=== PATIENT | female | born 1955 | race Caucasian/White ===

== ENCOUNTER 2022-09-10 15:55 | Inpatient (IN) | payer OTHER, SELFPAY ==
[2022-09-10] VITALS (7 sets, daily range): BP systolic 128–157; BP diastolic 72–93; PULSE 61–72; RESP 16–22; TEMP 36.2–36.6; O2SAT 91–97; BMI 30.5; BMI 29.8
--- NOTE | 2022-09-10 16:24 | PC.NURSE ---
placed on 3 liters via nc as with activity patient dropped to 71-7% on room air so normally is on 3 liters of NC and climbed to 87% and continues to recover.
--- NOTE | 2022-09-10 16:27 | CRLHL7_ITS ---
For Patients: As a result of the Cures Act, medical imaging exams and procedure reports are released immediately into your electronic medical record. You may view this report before your referring provider. If you have questions, please contact your health care provider. INDICATION: Shortness of breath. TECHNIQUE: Chest 2 views. COMPARISON: Chest CT 12/07/2021. FINDINGS: Cardiovascular and mediastinum: Cardiomegaly. Tortuous and atherosclerotic thoracic aorta. Lungs and pleural spaces: Patchy left lower lobe airspace opacity with blunting of the left costophrenic angle. Questionable smaller opacity in the right lower lobe. No pneumothorax. Bones and soft tissues: Unchanged chronic anterior compression fracture at thoracolumbar junction. Right axillary surgical clips. IMPRESSION: Patchy left lower lobe, and possibly right lower lobe, airspace opacity compatible with pneumonia in the correct clinical setting. Probable small left pleural effusion. Dictated by Gerry Yang MD @ 09/10/2022 7:03:18 PM (Electronically Signed)
[2022-09-10 16:51] LABS: Lactate* 1.3 mmol/L (0.5-1.9)
[2022-09-10 16:52] LABS: Basophils Absolute Auto 0.03 K/uL (0.00-0.30); Basophils Percent Auto 0.5 % (0.0-3.0); Eosinophils Absolute Auto 0.03 K/uL (0.00-0.50); Eosinophils Percent Auto 0.5 % (0.0-7.0); Hemoglobin* 10.3 gm/dL (12.0-16.0); Immature Granulocytes Abs Auto 0.01 K/uL (0.00-0.30); Immature Granulocytes Pct Auto 0.2 %; Lymphocytes Percent Auto 16.5 % (20-44); Mean Corpuscular HGB Conc 31 gm/dL (32-36); Mean Corpuscular Hemoglobin 31 pg (26-34); Mean Corpuscular Volume 99 fL (80-100); Monocytes Percent Auto 13.1 % (0.0-11.0); Neutrophils Absolute Auto 3.86 K/uL (1.7-7.0); Neutrophils Percent Auto 69.2 % (42.0-72.0); Platelet Count* 166 K/uL (140-440); RDW Coefficient of Variation % 18.1 % (11.5-15.5); Red Blood Count 3.35 m/uL (4.00-5.20); White Blood Count* 5.58 K/uL (4.50-11.00)
--- NOTE | 2022-09-10 16:57 | ED.GENADULT ---
HPI - General Adult General Chief complaint: Shortness of Breath/Dyspnea Stated complaint: Short of Breath Retaining Water Time Seen by Provider: 09/10/22 16:16 Source: patient Mode of arrival: ambulatory Limitations: no limitations History of Present Illness HPI narrative: Patient is a 67-year-old female coming in today complaining shortness of breath. Patient states she has been getting more short of breath over the last several weeks. She denies any fevers or chills. Has a mild cough but that is nothing new. She does have a history of COPD and congestive heart failure. Has noticed that her legs have become more swollen over the last several weeks. She is usually on 3 L oxygen at home and that has remained stable. She stated that she tried to increase her oxygen levels but the machine went crazy on her. Appetite is unchanged, no diarrhea or urinary symptoms. No sick contacts that she is aware of. She does take Lasix 40 mg daily and that is unchanged. Has noticed a weight increase over the last couple of months. Related Data Home Medications Medication Instructions Recorded Confirmed acetaminophen 325 mg tablet 975 mg PO .q 8 hrs PRN 08/16/22 09/10/22 albuterol sulfate 90 mcg/actuation 2 puff inhalation Q4H PRN 08/16/22 09/10/22 aerosol inhaler amiodarone 200 mg tablet 200 mg PO QDAY 08/16/22 09/10/22 apixaban 5 mg tablet (Eliquis) 5 mg PO BID 08/16/22 09/10/22 atorvastatin 40 mg tablet 40 mg PO QDAY 08/16/22 09/10/22 binimetinib 15 mg tablet (Mektovi) 45 mg PO BID 08/16/22 09/10/22 calcium carbonate 600 mg-vitamin 1 cap PO DAILY 08/16/22 09/10/22 D3 12.5 mcg (500 unit) capsule (Calcium 600 with Vitamin D3) cholecalciferol (vitamin D3) 125 125 mcg PO QDAY 08/16/22 09/10/22 mcg (5,000 unit) capsule digoxin 125 mcg (0.125 mg) tablet 0.125 mg PO QDAY 08/16/22 09/10/22 encorafenib 75 mg capsule 450 mg PO QDAY 08/16/22 09/10/22 (Braftovi) fluoxetine 40 mg capsule 40 mg PO QDAY 08/16/22 09/10/22 furosemide 40 mg tablet 40 mg PO QDAY 08/16/22 09/10/22 gabapentin 100 mg capsule 100 mg PO .hs 08/16/22 09/10/22 isosorbide dinitrate 5 mg tablet 5 mg PO BID 08/16/22 09/10/22 magnesium hydroxide 400 mg/5 mL 30 ml PO QDAY PRN 08/16/22 09/10/22 oral suspension (Dulcolax (magnesium hydroxide)) omeprazole 20 mg capsule,delayed 20 mg PO QDAY 08/16/22 09/10/22 release umeclidinium 62.5 mcg-vilanterol 1 inh inhalation Q24H 08/16/22 09/10/22 25 mcg/actuation powdr for inhalation (Anoro Ellipta) Allergies Allergy/AdvReac Type Severity Reaction Status Date / Time codeine Allergy Severe blisters Verified 09/10/22 16:12 Review of Systems Status of ROS: Reports: 10 or more systems reviewed and unremarkable except as noted in History and below PFSH PFS Social History Smoking Status: Former smoker What tobacco products do you use: cigarettes Smoking packs per day: 1 Smoking cigarettes per day: 20.0 Years smoked: 50 Smoking pack-years: 50.00 Smoking quit date/years: >15 years ago Second hand tobacco smoke exposure: No How often do you have a drink containing alcohol: never How often do you have six or more drinks on one occasion: Never AUDIT-C Alcohol total score: 0 Non-prescribed substance use: denies use service: No Exam Narrative: Exam Narrative: Well-nourished well-developed patient , obviously tachypneic with pursed lip breathing. Alert and oriented. Answers questions appropriately. Mood and affect are appropriate. Thoughts are goal oriented and rational. No tangential or magical thinking noted. HEENT: Normocephalic atraumatic. Pupils are equally round reactive to light. Extraocular muscles are intact. Conjunctivae are moist without any icterus noted. Moist mucous membranes. Posterior pharynx is normal. Neck is soft without any lymphadenopathy or thyromegaly. No masses are appreciated. Cardiovascular: Heart is regular rate and rhythm S1 and S2 are present without any murmurs. Lungs: Decreased breath sounds bilaterally with the left more so than the right. There is no wheezing or rales heard. Abdomen: Soft and nontender nondistended with normal bowel sounds. No guarding or rebound. Extremities: Bilateral lower extremities have 2+ pitting edema almost to the knees. Skin: Well perfused without any obvious rashes. Const: Vital Signs, click to edit/add: Vital Signs - 24 hr 09/10/22 16:03 09/10/22 17:40 09/10/22 17:51 Temperature 97.4 F L 97.6 F Pulse Rate [Right Pulse Oximeter] 65 68 Respiratory Rate 22 18 Blood Pressure [Ri t Upper Arm] 137/76 149/83 H Pulse Oximetry 97 93 94 Oxygen Delivery Me thod Nasal Cannula Nasal Cannula Course Course Hospital Course: IV was established and labs were drawn. She has mild anemia, normal white blood cell count. Mild hyponatremia 134. BNP elevated over 6000. Chest x-ray concerning for pneumonia per radiologic read however this does not clinically fit the picture. Patient received IV Lasix 40 mg, urinated over 1000 mL in the following in 2 hours. Her oxygen saturation went from 89-90% on 3 L nasal cannula to 94-95%. Had a conversation with Shayy and her daughter regarding her living situation, Shayy currently lives in her daughter's basement in an independent apartment. Her daughter is quite concerned about her mobility and evidence of dementia. Patient has been forgetting to wear her oxygen, has not been ambulating very much and has not been eating well at home. Patient and daughter are unsure of when her last echocardiogram was. Vital Signs Vital signs: Initial Vital Signs Temperature 97.4 F L 09/10/22 16:03 Temperature Source Temporal Artery Scan 09/10/22 16:03 Pulse Rate 65 09/10/22 16:03 Respiratory Rate 22 09/10/22 16:03 Blood Pressure 137/76 09/10/22 16:03 Blood Pressure Mean 96 09/10/22 16:03 Blood Pressure Position Sitting 09/10/22 16:03 Pulse Oximetry 97 09/10/22 16:03 Oxygen Delivery Method 09/10/22 16:03 Vital Signs Temperature 97.4 F L 09/10/22 16:03 Pulse Rate 65 09/10/22 16:03 Respiratory Rate 22 09/10/22 16:03 Blood Pressure 137/76 09/10/22 16:03 Pulse Oximetry 97 09/10/22 16:03 Oxygen Delivery Method 09/10/22 16:03 Temperature 97.6 F 09/10/22 17:51 Pulse Rate 68 09/10/22 17:51 Respiratory Rate 18 09/10/22 17:51 Blood Pressure 149/83 H 09/10/22 17:51 Pulse Oximetry 94 09/10/22 17:51 Oxygen Delivery Method 09/10/22 17:51 Medical Decision Making MDM Narrative Medical decision making narrative: 67-year-old female congestive heart failure and question failure to thrive at home. Patient will be admitted for further management. Lab Data Lab results reviewed: Yes I reviewed the patient's lab results Labs: Lab Results 09/10/22 09/10/22 09/10/22 Range/Units 16:27 16:27 16:45 WBC 5.58 (4.50-11.00) K/uL RBC 3.35 L (4.00-5.20) m/uL Hgb 10.3 L (12.0-16.0) gm/dL Hct 33.0 (33.0-51.0) % MCV 99 (80-100) fL MCH 31 (26-34) pg MCHC 31 L (32-36) gm/dL RDW Coeff of Bruno 18.1 H (11.5-15.5) % Plt Count 166 (140-440) K/uL Neut % (Auto) 69.2 (42.0-72.0) % Lymph % (Auto) 16.5 L (20-44) % Amador % (Auto) 13.1 H (0.0-11.0) % Eos % (Auto) 0.5 (0.0-7.0) % Baso % (Auto) 0.5 (0.0-3.0) % Neut # (Auto) 3.86 (1.7-7.0) K/uL Lymph # (Auto) 0.90 (0.90-2.90) K/uL Amador # (Auto) 0.70 (0.00-0.90) K/UL Eos # (Auto) 0.03 (0.00-0.50) K/uL Baso # (Auto) 0.03 (0.00-0.30) K/uL Sodium (135-149) mmol/L Potassium (3.6-5.1) mmol/L Chloride (96-114) mmol/L Carbon Dioxide (20-32) mmol/L BUN (7-30) mg/dL Creatinine (0.5-1.5) mg/dL Estimated Creat Clear Estimated GFR ml/min Glucose (60-115) mg/dL Lactate (0.5-1.9) mmol/L Calcium (8.4-10.6) mg/dL C-Reactive Protein (0.5-1.0) mg/dL NT-Pro-B Natriuret Pep pg/mL SARS-CoV-2 (PCR) Negative SARS-CoV-2 (Negative) Influenza Type A (PCR) Negative PCR FLU A (Negative) Influenza Type B (PCR) Negative PCR FLU B (Negative) RSV (PCR) Negative PCR RSV (Negative) POC Troponin I 0.02 (0.01-0.04) ng/ml 09/10/22 09/10/22 Range/Units 16:45 16:45 WBC (4.50-11.00) K/uL RBC (4.00-5.20) m/uL Hgb (12.0-16.0) gm/dL Hct (33.0-51.0) % MCV (80-100) fL MCH (26-34) pg MCHC (32-36) gm/dL RDW Coeff of Bruno (11.5-15.5) % Plt Count (140-440) K/uL Neut % (Auto) (42.0-72.0) % Lymph % (Auto) (20-44) % Amador % (Auto) (0.0-11.0) % Eos % (Auto) (0.0-7.0) % Baso % (Auto) (0.0-3.0) % Neut # (Auto) (1.7-7.0) K/uL Lymph # (Auto) (0.90-2.90) K/uL Amador # (Auto) (0.00-0.90) K/UL Eos # (Auto) (0.00-0.50) K/uL Baso # (Auto) (0.00-0.30) K/uL Sodium 139 (135-149) mmol/L Potassium 3.4 L (3.6-5.1) mmol/L Chloride 103 (96-114) mmol/L Carbon Dioxide 29 (20-32) mmol/L BUN 17 (7-30) mg/dL Creatinine 0.8 (0.5-1.5) mg/dL Estimated Creat Clear 49.70 Estimated GFR 80 ml/min Glucose 96 (60-115) mg/dL Lactate 1.3 (0.5-1.9) mmol/L Calcium 10.3 (8.4-10.6) mg/dL C-Reactive Protein 0.8 (0.5-1.0) mg/dL NT-Pro-B Natriuret Pep 6930 pg/mL SARS-CoV-2 (PCR) (Negative) Influenza Type A (PCR) (Negative) Influenza Type B (PCR) (Negative) RSV (PCR) (Negative) POC Troponin I (0.01-0.04) ng/ml Imaging Data Chest x-ray: Attestation: I have reviewed the pertinent imaging results. Radiologist's impression: Chest 2 views. COMPARISON: Chest CT 12/07/2021. FINDINGS: Cardiovascular and mediastinum: Cardiomegaly. Tortuous and atherosclerotic thoracic aorta. Lungs and pleural spaces: Patchy left lower lobe airspace opacity with blunting of the left costophrenic angle. Questionable smaller opacity in the right lower lobe. No pneumothorax. Bones and soft tissues: Unchanged chronic anterior compression fracture at thoracolumbar junction. Right axillary surgical clips. IMPRESSION: Patchy left lower lobe, and possibly right lower lobe, airspace opacity compatible with pneumonia in the correct clinical setting. Probable small left pleural effusion. ECG Data Attestation: I personally reviewed and interpreted this ECG as follows: (Normal sinus rhythm, first-degree AV block, incomplete right bundle-branch block, pulse 64) Discharge Plan Discharge Clinical Impression: Congestive heart failure Prescriptions: No Action isosorbide dinitrate 5 mg tablet 5 mg PO BID amiodarone 200 mg tablet 200 mg PO QDAY Eliquis 5 mg tablet 5 mg PO BID gabapentin 100 mg capsule 100 mg PO .hs atorvastatin 40 mg tablet 40 mg PO QDAY Label Comments: TAKE 1 TABLET BY MOUTH AT BEDTIME fluoxetine 40 mg capsule 40 mg PO QDAY Rx Instructions: takes along with 20mg daily furosemide 40 mg tablet 40 mg PO QDAY Rx Instructions: takes along with 20mg daily digoxin 125 mcg (0.125 mg) tablet 0.125 mg PO QDAY omeprazole 20 mg capsule,delayed release(DR/EC) 20 mg PO QDAY Anoro Ellipta 62.5-25 mcg/actuation blister with device 1 inh inhalation Q24H Label Comments: INHALE 1 PUFF BY MOUTH EVERY DAY Mektovi 15 mg tablet 45 mg PO BID Braftovi 75 mg capsule 450 mg PO QDAY calcium carbonate-vitamin D3 [Calcium 600 with Vitamin D3] 600 mg-12.5 mcg (500 unit) capsule 1 cap PO DAILY magnesium hydroxide [Dulcolax (magnesium hydroxide)] 400 mg/5 mL suspension 30 ml PO QDAY PRN cholecalciferol (vitamin D3) 125 mcg (5,000 unit) capsule 125 mcg PO QDAY albuterol sulfate 90 mcg/actuation HFA aerosol inhaler 2 puff inhalation Q4H PRN acetaminophen 325 mg tablet 975 mg PO .q 8 hrs PRN Follow Up/Referrals: Carlitos De Leon, PATurnerC [Primary Care Provider] -
[2022-09-10] MEDS: FUROSEMIDE 10 MG/ML inj 40 MG IVP (17:07)
[2022-09-10 17:09] LABS: Chloride* 103 mmol/L (96-114); Potassium* 3.4 mmol/L (3.6-5.1); Sodium* 139 mmol/L (135-149)
[2022-09-10 17:12] LABS: Blood Urea Nitrogen* 17 mg/dL (7-30); Carbon Dioxide* 29 mmol/L (20-32); Creatinine* 0.8 mg/dL (0.5-1.5); Estimated Glomerular Filt Rate 80 ml/min
[2022-09-10 17:13] LABS: Calcium* 10.3 mg/dL (8.4-10.6); Glucose* 96 mg/dL (60-115)
[2022-09-10 17:15] LABS: C Reactive Protein* 0.8 mg/dL (0.5-1.0)
[2022-09-10 17:18] LABS: Slide Review Reflex No
[2022-09-10 17:20] LABS: NT Pro B Type NatriureticPept* 6930 pg/mL
[2022-09-10 17:31] LABS: Troponin, Point-of-Care* 0.02 ng/ml (0.01-0.04)
[2022-09-10 17:49] LABS: PCR FLU A Negative PCR FLU A (Negative); PCR FLU B Negative PCR FLU B (Negative); PCR RSV Negative PCR RSV (Negative)
[2022-09-10 18:03] LABS: SARS PCR* Negative SARS-CoV-2 (Negative)
[2022-09-10 19:24] LABS: Troponin, Point-of-Care* 0.02 ng/ml (0.01-0.04)
--- NOTE | 2022-09-10 21:36 | P.IMHP_ITS ---
Hospitalist- H&P: HPI History of Present Illness Date Seen: 09/10/22 Chief complaint: Short of Breath Retaining Water Narrative: Shayy Cheng is a 67 year old female with past medical history of CAD s/p stent, malignant melanoma, paroxysmal atrial fibrillation on Eliquis, hypertension, KARL on CPAP, COPD (on 3 liters baseline), depression/anxiety, and breast cancer s/p bilateral mastectomy presenting for evalaution of SOB. The patient lives with her daughter in law. She endorses increased lower extremity edema; progressive cough and exertional dyspnea. She denies wheezing, fever, chest pain, palpitations. In the ED CXR showed Patchy left lower lobe, and possibly right lower lobe, airspace opacity compatible with pneumonia in the correct clinical setting. Probable small left pleural effusion. In the ED troponin WNL, procal WNL, WBC WNL, potassium 3.4, BNP 6930. She was given 40 mg IV lasix and admitted for further evaluation. Patient states SOB has improved since arrival in ED. She is on 3 liters oxygen (her normal baseline) cxr Patchy left lower lobe, and possibly right lower lobe, airspace opacity compatible with pneumonia in the correct clinical setting. Probable small left pleural effusion. Medical Hx 12/04/2018 Encounter for antineoplastic immunotherapy 09/13/2018 Malignant melanoma (HC) 2019 Brain tumor (HC) 2019 C. difficile colitis 05/12/2000 Breast cancer (HC) Date Unknown Anxiety Date Unknown Aortic aneurysm, abdominal Date Unknown Bronchitis Date Unknown CAD (coronary artery disease) Date Unknown COPD (chronic obstructive pulmonary disease) (HC) Date Unknown Depression Date Unknown Emphysema, unspecified (HC) Date Unknown H/O ETOH abuse Date Unknown Heart attack (HC) Date Unknown Hypertension Date Unknown Insomnia Date Unknown Low potassium syndrome Date Unknown Lymphedema of left leg Date Unknown Osteoarthritis Date Unknown Osteoporosis Date Unknown Scoliosis Date Unknown Sleep apnea Surgical History? 8 items 08/22/2017 Coronary stent placement Date Unknown (ia) pr remove groin lymph nodes superf Date Unknown Back surgery Date Unknown Hysterectomy Date Unknown Mandible surgery Date Unknown Mastectomy Date Unknown Portacath Date Unknown Pr unlisted procedure breast (Right) Tobacco History? 6 items Smoking Status Former Quit 04/21/2020 Types Cigarettes quit in 04/21/2020 Amount 0.25 packs/day Smokeless Tobacco Status Never Comment 5 cigs per day Vaping/E-Liquid Use Questions Responses Vaping/E-Liquid Use Never User Vaping/E-Liquid Substances Questions Responses Nicotine No CBD No Flavored No THC No Other No Review of Systems Status of ROS: Reports: 10 or more systems reviewed and unremarkable except as noted in History and below [facility] Social History Smoking Status: Former smoker What tobacco products do you use: cigarettes Smoking packs per day: 1 Smoking cigarettes per day: 20.0 Years smoked: 50 Smoking pack-years: 50.00 Smoking quit date/years: >15 years ago Second hand tobacco smoke exposure: No How often do you have a drink containing alcohol: never How often do you have six or more drinks on one occasion: Never AUDIT-C Alcohol total score: 0 Non-prescribed substance use: denies use service: No Meds Home Medications and Allergies Home Medications Medication Instructions Recorded Confirmed Type acetaminophen 325 mg tablet 975 mg PO .q 8 hrs PRN 08/16/22 09/10/22 History albuterol sulfate 90 mcg/actuation 2 puff inhalation Q4H PRN 08/16/22 09/10/22 History aerosol inhaler amiodarone 200 mg tablet 200 mg PO QDAY 08/16/22 09/10/22 History apixaban 5 mg tablet (Eliquis) 5 mg PO BID 08/16/22 09/10/22 History atorvastatin 40 mg tablet 40 mg PO QDAY 08/16/22 09/10/22 History binimetinib 15 mg tablet (Mektovi) 45 mg PO BID 08/16/22 09/10/22 History calcium carbonate 600 mg-vitamin 1 cap PO DAILY 08/16/22 09/10/22 History D3 12.5 mcg (500 unit) capsule (Calcium 600 with Vitamin D3) cholecalciferol (vitamin D3) 125 125 mcg PO QDAY 08/16/22 09/10/22 History mcg (5,000 unit) capsule digoxin 125 mcg (0.125 mg) tablet 0.125 mg PO QDAY 08/16/22 09/10/22 History encorafenib 75 mg capsule 450 mg PO QDAY 08/16/22 09/10/22 History (Braftovi) fluoxetine 40 mg capsule 40 mg PO QDAY 08/16/22 09/10/22 History furosemide 40 mg tablet 40 mg PO QDAY 08/16/22 09/10/22 History gabapentin 100 mg capsule 100 mg PO .hs 08/16/22 09/10/22 History isosorbide dinitrate 5 mg tablet 5 mg PO BID 08/16/22 09/10/22 History magnesium hydroxide 400 mg/5 mL 30 ml PO QDAY PRN 08/16/22 09/10/22 History oral suspension (Dulcolax (magnesium hydroxide)) omeprazole 20 mg capsule,delayed 20 mg PO QDAY 08/16/22 09/10/22 History release umeclidinium 62.5 mcg-vilanterol 1 inh inhalation Q24H 08/16/22 09/10/22 History 25 mcg/actuation powdr for inhalation (Anoro Ellipta) Allergies Allergy/AdvReac Type Severity Reaction Status Date / Time codeine Allergy Severe blisters Verified 09/10/22 16:12 Exam Narrative: Exam Narrative: Gen: no acute distress HEENT: NCAT EOMI mmm Neck: Supple CV: RRR normal s1 s2 Lungs: bibasilar crackles Abd: Soft,nt, nd Neuro: Alert, oriented, CN grossly intact; nonfocal screening?exam Psych: appropriate affect MSK: age appropriate muscle mass Skin; Warm, dry no rash on face Ext: 1-2+ bilateral lower extremity edema Const: Vital Signs, click to edit/add: Vital Signs - 24 hr 09/10/22 16:03 09/10/22 17:40 09/10/22 17:51 Temperature 97.4 F L 97.6 F Pulse Rate [Right Pulse Oximeter] 65 68 Respiratory Rate 22 18 Blood Pressure [Ri ght Upper Arm] 137/76 149/83 H Pulse Oximetry 97 93 94 Oxygen Delivery Me thod Nasal Cannula Nasal Cannula Oxygen Flow Rate 09/10/22 19:49 Temperature Pulse Rate [Right Pulse Oximeter] 66 Respiratory Rate 20 Blood Pressure [Ri ght Upper Arm] 132/80 Pulse Oximetry 94 Oxygen Delivery Me thod Nasal Cannula Oxygen Flow Rate 3 Hospitalist - H&P: Result Labs Labs: Short CBC 09/10/22 Range/Units 16:45 WBC 5.58 (4.50-11.00) K/uL Hgb 10.3 L (12.0-16.0) gm/dL Hct 33.0 (33.0-51.0) % Plt Count 166 (140-440) K/uL [facility] 09/10/22 16:45 Sodium 139 Potassium 3.4 L Chloride 103 Carbon Dioxide 29 BUN 17 Creatinine 0.8 Glucose 96 Calcium 10.3 ECG Interpretation: Final Conclusion Previous Study: 08/03/2021 1. Normal left ventricular chamber size.Normal left ventricular wall thickness. Estimated left ventricular ejection fraction is 60-65%.No regional wall motion abnormalities.Abnormal ventricular septal motion. Ventricular septal flattening in systole and diastole consistent with right ventricular pressure and volume overload. 2. Severe right ventricular chamber enlargement. Moderately decreased right ventricular systolic function. Severe pulmonary hypertension. Estimated right ventricular systolic pressure is 63 mmHg 3.Aortic valve sclerosis.No aortic valve stenosis.No aortic valve regurgitation. 4.Mild tricuspid valve regurgitation. 5.Dilated inferior vena cava with decreased inspiratory collapse. ? Compared to prior study of 08/03/2021, the following changes have occurred: RV is enlarged and moderately severely hypokinetic. There is severe pulmonary hypertension with RVSP increased from 40 Mmhg to 63 MMhg plus 15 MMhg RAP Ventricular septal flattening in systole and diastole consistent with right ventricular pressure and volume overload is now present. ? . Patient short of breath /she was imaged sitting upright and on O2. ? Estimated EF: 60-65% Assessment and Plan Assessment and plan (1) Congestive heart failure: Status: Acute Plan Shayy Cheng is a 67 year old female with past medical history of CAD s/p stent, malignant melanoma, paroxysmal atrial fibrillation on Eliquis, hypertension, KARL on CPAP, COPD (on 3 liters baseline), depression/anxiety, and breast cancer s/p bilateral mastectomy presenting for evalaution of SOB, increased lower extremity edema; progressive cough and exertional dyspnea. In the ED CXR showed Patchy left lower lobe, and possibly right lower lobe, airspace opacity compatible with pneumonia in the correct clinical setting. Probable small left pleural effusion. In the ED troponin WNL, procal WNL, WBC WNL, potassium 3.4, BNP 6930. She was given 40 mg IV lasix and admitted for further evaluation. Patient states SOB has improved since arrival in ED. She is on 3 liters oxygen (her normal baseline) 1. Acute on chronic diastolic CHF exacerbation 2. Chronic Hypoxic Respiratory Failure secondary to COPD on 3 liters supplemental oxygen 3. Hx of CAD s/p stent angiogram in 09/2020: LM normal, LAD with mod dz-diffuse and dense calcification but patent and without focal stenoses, Cx also with mod dz and diffuse calcifications but prior stent is widely patent 4. Hx of PAF on eliquis 5. Hx of HTN 6. Hx of KARL 7. Hx of Depression and anxiety 8. Hx of breast cancer s/p bilateral mastectomy 9. Hx of Malignant melanoma 10. Anemia of chronic disease 11. Hypokalemia 12. Rule out RLL PNA althought procal WNL 13. Generalized Weakness; multifactorial 14. LLE lymphedema Plan -admit to inpatient -tele -echo -daily weight -continue IV lasix -electrolyte replacement as needed -ceftriaxone and doxycyline but given normal procal low threshold for de- escalating vs dc antibiotics -PT, OT evaluation Code-DNR DVT ppx-on eliquis
[2022-09-10] MEDS: ACETAMINOPHEN 325 MG TABLET 650 MG PO (22:00)
[2022-09-10] MEDS: ATORVASTATIN CALCIUM 40 MG TABLET PO (22:01)
[2022-09-10] MEDS: GABAPENTIN 100 MG CAPSULE PO (22:02)
[2022-09-10] MEDS: APIXABAN 5 MG TABLET PO (22:02)
[2022-09-10] MEDS: ISOSORBIDE DINITRATE 10 MG TABLET 5 MG PO (22:04)
[2022-09-10] MEDS: SODIUM CHLORIDE 0.9 % (FLUSH) 10 ML SYRINGE 5 ML IVF (22:04)
[2022-09-10 22:48] LABS: Procalcitonin* 0.04 ng/mL (<0.50)
[2022-09-10 23:21] LABS: Magnesium* 1.8 mg/dL (1.5-2.6)
[2022-09-11] VITALS (14 sets, daily range): BP systolic 112–135; BP diastolic 58–76; PULSE 52–66; RESP 18–22; TEMP 36.2–36.8; O2SAT 88–94
[2022-09-11] MEDS: cefTRIAXone 1 GM in 0.9 % SODIUM CHLORIDE Mini-bag 100 ML IVPB (00:36)
[2022-09-11] MEDS: DOXYCYCLINE HYCLATE 100 MG CAPSULE PO ×3 (00:36→21:14)
[2022-09-11] MEDS: POTASSIUM CHLORIDE 10 MEQ CAPSULE ER 40 MEQ PO (00:37)
[2022-09-11] MEDS: MAGNESIUM OXIDE 400 MG TABLET PO ×3 (00:37→21:15)
--- NOTE | 2022-09-11 05:17 | PC.NURSE ---
Patient to unit at 2014. A&Ox3. Pleasant and cooperative. Rates chronic L. hip pain 02/28. PRN Tylenol for relief. A1/walker/GB. SOB with exertion. Chronic 3Lt O2 use. Afebrile. [id number] Pamela at bedside and supportive.
[2022-09-11 07:28] LABS: Chloride* 106 mmol/L (96-114); Potassium* 4.1 mmol/L (3.6-5.1); Sodium* 141 mmol/L (135-149)
[2022-09-11 07:29] LABS: Iron* 33 ug/dL (37-170)
[2022-09-11 07:31] LABS: Carbon Dioxide* 31 mmol/L (20-32); Creatinine* 0.8 mg/dL (0.5-1.5); Estimated Glomerular Filt Rate 80 ml/min
[2022-09-11 07:32] LABS: Blood Urea Nitrogen* 15 mg/dL (7-30); Calcium* 9.9 mg/dL (8.4-10.6); Glucose* 88 mg/dL (60-115); Magnesium* 1.9 mg/dL (1.5-2.6)
[2022-09-11 07:38] LABS: Percent Iron Saturation 8 % (20-50); Total Iron Binding Capacity 397 ug/dL (265-497)
[2022-09-11 07:45] LABS: White Blood Count* 4.87 K/uL (4.50-11.00)
[2022-09-11 07:46] LABS: Basophils Percent Auto 0.4 % (0.0-3.0); Eosinophils Percent Auto 1.8 % (0.0-7.0); Hematocrit 31.8 % (33.0-51.0); Hemoglobin* 9.8 gm/dL (12.0-16.0); Immature Granulocytes Pct Auto 0.2 %; Lymphocytes Percent Auto 27.1 % (20-44); Mean Corpuscular HGB Conc 31 gm/dL (32-36); Mean Corpuscular Hemoglobin 30 pg (26-34); Mean Corpuscular Volume 99 fL (80-100); Monocytes Percent Auto 14.4 % (0.0-11.0); Neutrophils Percent Auto 56.1 % (42.0-72.0); Platelet Count* 174 K/uL (140-440); RDW Coefficient of Variation % 18.2 % (11.5-15.5); Red Blood Count 3.22 m/uL (4.00-5.20)
[2022-09-11 07:47] LABS: Slide Review Reflex No
[2022-09-11] MEDS: AMIODARONE 200 MG TABLET PO (09:34)
[2022-09-11] MEDS: APIXABAN 5 MG TABLET PO ×2 (09:34→21:15)
[2022-09-11] MEDS: FUROSEMIDE 40 MG TABLET PO ×2 (09:34→14:54)
[2022-09-11] MEDS: SODIUM CHLORIDE 0.9 % (FLUSH) 10 ML SYRINGE 5 ML IVF ×2 (09:35→21:13)
[2022-09-11 09:36] LABS: Digoxin* 1.1 ng/mL (0.8-2.0)
[2022-09-11] MEDS: ISOSORBIDE DINITRATE 10 MG TABLET 5 MG PO ×2 (09:50→21:12)
--- NOTE | 2022-09-11 14:36 | PC.NURSE ---
Eval by Dr. Miko Butler, PT and OT. No dysphagia with meds or c/o pain. Tele indicates sinus bradycardia with a first degree HB. Digoxin dose held d/to pulse of [address] Butler aware. Saline lock patent. Son Doug visiting this afternoon and he brought in home chemo meds and Anoro inhaler, pharmacist Rebecca notified and she will verify meds/print labels. Sats maintained on 3L/NC which is patient's flow rate of oxygen at home for her CHF.
--- NOTE | 2022-09-11 16:38 | PC.NURSE ---
Pt received 40 mg of Lasix and has voided once since it was given. Assisted with dinner order. VS stable, sats 91% on 3L/NC. Tele indicates NSR with first degree heart block. Plan potassium with evening meal 10 mEq PO. Report will be given to oncoming noc shift per protocol.
[2022-09-11] MEDS: POTASSIUM CHLORIDE 10 MEQ CAPSULE ER PO (17:09)
--- NOTE | 2022-09-11 18:15 | P.IMPN_ITS ---
Progress Note: A&P Assessment and plan (1) Congestive heart failure: Problem details: Clinically improved with diuresis. Transition from IV to oral furosemide. Echocardiogram from July 2023: 1. Normal left ventricular chamber size. Normal left ventricular wall thickness. Estimated left ventricular ejection fraction is 60-65%.No regional wall motion abnormalities.Abnormal ventricular septal motion. Ventricular septal flattening in systole and diastole consistent with right ventricular pressure and volume overload. 2. Severe right ventricular chamber enlargement. Moderately decreased right ventricular systolic function. Severe pulmonary hypertension. Estimated right ventricular systolic pressure is 63 mmHg 3.Aortic valve sclerosis.No aortic valve stenosis.No aortic valve regurgitation. 4.Mild tricuspid valve regurgitation. 5.Dilated inferior vena cava with decreased inspiratory collapse. Status: Acute (2) COPD (chronic obstructive pulmonary disease): Problem details: Chronic oxygen dependence, 3 L per nasal cannula Status: Acute (3) Lymphedema of left lower extremity: Status: Acute (4) Chronic anemia: Problem details: Uncertain etiology. Currently has iron deficiency but elevated MCV. Likely multifactorial Status: Acute (5) Paroxysmal atrial fibrillation: Problem details: Currently in sinus rhythm. Heart rate relatively slow. Stop digoxin. If necessary give beta-frankie for rate control. Continue anticoagulation. Status: Acute Plan Continue in-hospital for monitoring and treatment of heart failure, heart rate and rhythm, hypoxia. Time Spent With Patient Total time spent: Total time spent today is 50 minutes, 30 minutes in coordination of care and discussing with patient and other providers management of multiple chronic medical problems listed above Subjective Date Seen: 09/11/22 Interval history: 67-year-old female seen in followup of hospital admission for acute on chronic hypoxic respiratory failure with acute on chronic dyspnea. Time admission this was felt to be due to heart failure exacerbation. Patient been treated with diuretic therapy and has had significant clinical improvement overnight. She remains on 3 L per nasal cannula supplemental oxygen which is her baseline treatment at home for her COPD. Chest x-ray raised the possibility of a basilar infiltrate posteriorly but she has not had any clinical signs or symptoms of respiratory illness beyond dyspnea. Exam Narrative: Exam Narrative: She is alert and appears in no distress. She gives her own history. Respirations with occasional crackle. No consolidation. Decreased breath sounds in all lung taylor. No marked wheezing. Cardiovascular: S1, S2, 1/6 systolic ejection murmur. No gallop or rub. Abdomen is soft without tenderness or mass. 1+ edema in her right ankle and 2+ in her left ankle. Const: Vital Signs, click to edit/add: Vital Signs - 24 hr 09/10/22 19:49 09/10/22 23:00 09/10/22 23:00 Temperature Pulse Rate Pulse Rate [Left P ulse Oximeter] Pulse Rate [Right Pulse Oximeter] 66 Respiratory Rate 20 18 Blood Pressure [Le ft Arm] Blood Pressure [Ri ght Upper Arm] 132/80 Pulse Oximetry 94 94 94 Oxygen Delivery Me thod Nasal Cannula Nasal Cannula Oxygen Flow Rate 3 3.0 09/10/22 23:00 09/10/22 20:20 09/10/22 22:30 Temperature 97.8 F 97.1 F L Pulse Rate 61 Pulse Rate [Left P ulse Oximeter] 72 69 Pulse Rate [Right Pulse Oximeter] Respiratory Rate 22 16 Blood Pressure [Le ft Arm] 157/93 H 128/72 Blood Pressure [Ri ght Upper Arm] Pulse Oximetry 94 91 Oxygen Delivery Me thod Nasal Cannula Nasal Cannula Oxygen Flow Rate 3.0 3.0 09/11/22 00:09 09/11/22 04:00 09/11/22 07:00 Temperature Pulse Rate 57 L Pulse Rate [Left P ulse Oximeter] 57 L Pulse Rate [Right Pulse Oximeter] Respiratory Rate 22 18 Blood Pressure [Le ft Arm] Blood Pressure [Ri ght Upper Arm] Pulse Oximetry 94 92 Oxygen Delivery Me thod Nasal Cannula Nasal Cannula Oxygen Flow Rate 3.0 3.0 09/11/22 07:45 09/11/22 07:45 09/11/22 07:45 Temperature 98.3 F Pulse Rate Pulse Rate [Left P ulse Oximeter] 57 L Pulse Rate [Right Pulse Oximeter] Respiratory Rate 20 20 Blood Pressure [Le ft Arm] 114/76 Blood Pressure [Ri ght Upper Arm] Pulse Oximetry 93 93 93 Oxygen Delivery Me thod Nasal Cannula Nasal Cannula Oxygen Flow Rate 3 3 09/11/22 08:00 09/11/22 11:00 09/11/22 15:15 Temperature 97.2 F L Pulse Rate 57 L Pulse Rate [Left P ulse Oximeter] 59 L Pulse Rate [Right Pulse Oximeter] Respiratory Rate 20 Blood Pressure [Le ft Arm] 112/64 Blood Pressure [Ri ght Upper Arm] Pulse Oximetry 91 91 Oxygen Delivery Me thod Nasal Cannula Oxygen Flow Rate 3 01/21/23 15:15 09/11/22 15:15 09/11/22 15:13 Temperature 97.4 F L Pulse Rate 61 Pulse Rate [Left P ulse Oximeter] 63 Pulse Rate [Right Pulse Oximeter] Respiratory Rate 20 20 Blood Pressure [Le ft Arm] 135/74 Blood Pressure [Ri ght Upper Arm] Pulse Oximetry 91 91 Oxygen Delivery Me thod Nasal Cannula Room Air Oxygen Flow Rate 3 3 Documenting provider has reviewed patient's vital signs: yes Labs Labs: Laboratory Results - last 24 hr 09/10/22 09/10/22 09/11/22 16:45 18:43 06:08 WBC 4.87 RBC 3.22 L Hgb 9.8 L Hct 31.8 L MCV 99 MCH 30 MCHC 31 L RDW Coeff of Bruno 18.2 H Plt Count 174 Neut % (Auto) 56.1 Lymph % (Auto) 27.1 Wilkinson % (Auto) 14.4 H Eos % (Auto) 1.8 Baso % (Auto) 0.4 Neut # (Auto) 2.70 Lymph # (Auto) 1.30 Wilkinson # (Auto) 0.70 Eos # (Auto) 0.10 Baso # (Auto) 0.00 Sodium Potassium Chloride Carbon Dioxide BUN Creatinine Estimated Creat Clear Estimated GFR Glucose Calcium Magnesium 1.8 Iron TIBC % Saturation Procalcitonin 0.04 Digoxin POC Troponin I 0.02 09/11/22 09/11/22 09/11/22 06:08 06:08 06:08 WBC RBC Hgb Hct MCV MCH MCHC RDW Coeff of Bruno Plt Count Neut % (Auto) Lymph % (Auto) Wilkinson % (Auto) Eos % (Auto) Baso % (Auto) Neut # (Auto) Lymph # (Auto) Wilkinson # (Auto) Eos # (Auto) Baso # (Auto) Sodium 141 Potassium 4.1 Chloride 106 Carbon Dioxide 31 BUN 15 Creatinine 0.8 Estimated Creat Clear 49.70 Estimated GFR 80 Glucose 88 Calcium 9.9 Magnesium 1.9 Iron 33 L TIBC 397 % Saturation 8 L Procalcitonin Digoxin 1.1 POC Troponin I
[2022-09-11] MEDS: OMEPRAZOLE 20 MG CAPSULE DR PO (19:42)
[2022-09-11] MEDS: Umeclidinium-Vilanterol [Anoro Ellipta] 62.5-25 mcg/actuation IH (19:42)
[2022-09-11] MEDS: ATORVASTATIN CALCIUM 40 MG TABLET PO (19:42)
[2022-09-11] MEDS: GABAPENTIN 100 MG CAPSULE PO (21:14)
[2022-09-11] MEDS: FLUOXETINE HCL 20 MG CAPSULE 40 MG PO (21:14)
[2022-09-12 01:49] VITALS: BP 118/69; PULSE 67; RESP 20; TEMP 36.6; O2SAT 89
--- NOTE | 2022-09-12 05:43 | PC.NURSE ---
[id number]: Patient pleasant and cooperative. A&Ox3. Denies pain. A1/4ww/GB. SOB w/movement. O2 sats >88% on chronic 3 Lt NC. Eating and voiding.
[2022-09-12 07:00] VITALS: PULSE 64; O2SAT 91
[2022-09-12 08:40] LABS: Albumin* 3.6 g/dL (3.3-5.0); Chloride* 107 mmol/L (96-114)
[2022-09-12 08:41] LABS: Potassium* 3.8 mmol/L (3.6-5.1); Sodium* 140 mmol/L (135-149)
[2022-09-12 08:43] LABS: Bilirubin Total* 0.8 mg/dL (0.1-1.5); Carbon Dioxide* 29 mmol/L (20-32); Creatinine* 0.8 mg/dL (0.5-1.5); Estimated Glomerular Filt Rate 80 ml/min; Total Protein* 6.7 g/dL (6.0-8.3)
[2022-09-12 08:44] LABS: Alanine Aminotransferase* 32 U/L (4-35); Alkaline Phosphatase* 68 U/L (40-150); Aspartate Amino Transferase* 31 U/L (12-35); Blood Urea Nitrogen* 13 mg/dL (7-30); Calcium* 9.7 mg/dL (8.4-10.6); Glucose* 91 mg/dL (60-115)
--- NOTE | 2022-09-12 09:01 | PM.DS1 ---
DS: Providers Provider Date Seen: 09/12/22 Date of admission: 09/10/22 19:53 Primary care physician: Carlitos De Leon PA-C Admitting Clinician: Singh Good MD Attending Physician on discharge: Singh Good MD Date of Discharge: 09/12/22 DS: Diagnosis Discharge Diagnosis (1) Congestive heart failure: Status: Acute Problem details: Clinically improved with diuresis. Transition from IV to oral furosemide. Echocardiogram from July 2023: 1. Normal left ventricular chamber size. Normal left ventricular wall thickness. Estimated left ventricular ejection fraction is 60-65%.No regional wall motion abnormalities.Abnormal ventricular septal motion. Ventricular septal flattening in systole and diastole consistent with right ventricular pressure and volume overload. 2. Severe right ventricular chamber enlargement. Moderately decreased right ventricular systolic function. Severe pulmonary hypertension. Estimated right ventricular systolic pressure is 63 mmHg 3.Aortic valve sclerosis.No aortic valve stenosis.No aortic valve regurgitation. 4.Mild tricuspid valve regurgitation. 5.Dilated inferior vena cava with decreased inspiratory collapse. (2) COPD (chronic obstructive pulmonary disease): Status: Acute Problem details: Chronic oxygen dependence, 3 L per nasal cannula (3) Lymphedema of left lower extremity: Status: Acute Problem details: Improved with diuresis. Continue long-term compression stockings (4) Chronic anemia: Status: Acute Problem details: Uncertain etiology. Currently has iron deficiency but elevated MCV. Likely multifactorial. Outpatient evaluation. (5) Paroxysmal atrial fibrillation: Status: Acute Problem details: Currently in sinus rhythm. Heart rate relatively slow. Stop digoxin. If necessary give beta-frankie for rate control. Continue anticoagulation. DS: Summary Hospital Course Hospital Course: 67-year-old female admitted to the hospital with increasing edema and dyspnea. Patient has COPD requiring 3 L of oxygen per nasal cannula chronically. Prior to admission she developed worsening dyspnea and increased swelling in her lower extremities. Time of admission this was felt to be due to heart failure exacerbation. Chest x-ray showed question of a basilar infiltrate but clinically there was no other evidence of an infectious process. On this basis she was treated for heart failure with increasing dose of diuretic. With that she had resolution of her dyspnea and improvement in her edema. She tolerated this well. She was incidentally noted to have an iron deficiency anemia with an elevated MCV. This was stable but the cause for this was not evaluated. Recommend outpatient evaluation for this. She had borderline bradycardia during her hospital stay she was in a sinus rhythm. She has history of paroxysmal atrial fibrillation. Her digoxin was held. Re-evaluate this on outpatient basis. Status at Discharge Overall status at discharge: patient is back to baseline Time Spent with Patient Time attestation: Total time spent providing and/or coordinating discharge services: Time spent: Greater than 30 minutes Exam Narrative: Exam Narrative: She is alert and appears in no distress. She reports being back at baseline. Breathing is unlabored on supplemental oxygen. Respirations are clear to auscultation without wheezing rales or rhonchi. Fair air exchange all lung taylor. Cardiovascular: S1, S2, relatively regular rhythm. Abdomen is soft without tenderness. 2+ edema in the left lower extremity and trace edema on the right Const: Vital Signs, click to edit/add: Vital Signs - 24 hr 09/11/22 11:00 09/11/22 15:15 09/11/22 15:15 Temperature 97.2 F L Pulse Rate Pulse Rate [Left P ulse Oximeter] 59 L Respiratory Rate 20 20 Blood Pressure [Le ft Arm] 112/64 Pulse Oximetry 91 91 91 Oxygen Delivery Me thod Nasal Cannula Nasal Cannula Oxygen Flow Rate 3 3 09/11/22 15:15 09/11/22 15:13 09/11/22 19:00 Temperature 97.4 F L 97.9 F Pulse Rate 61 Pulse Rate [Left P ulse Oximeter] 63 66 Respiratory Rate 20 20 Blood Pressure [Le ft Arm] 135/74 114/58 L Pulse Oximetry 91 88 Oxygen Delivery Me thod Room Air Nasal Cannula Oxygen Flow Rate 3 3.0 09/11/22 22:09 09/11/22 22:34 09/11/22 22:45 Temperature 97.4 F L Pulse Rate Pulse Rate [Left P ulse Oximeter] 63 Respiratory Rate 18 18 Blood Pressure [Le ft Arm] 122/72 Pulse Oximetry 90 90 90 Oxygen Delivery Me thod Nasal Cannula Nasal Cannula Oxygen Flow Rate 3.0 3.0 09/11/22 22:47 09/11/22 22:50 09/12/22 01:49 Temperature 97.9 F Pulse Rate 52 L Pulse Rate [Left P ulse Oximeter] 63 67 Respiratory Rate 20 Blood Pressure [Le ft Arm] 118/69 Pulse Oximetry 89 Oxygen Delivery Me thod Nasal Cannula Oxygen Flow Rate 3.0 Documenting provider has reviewed patient's vital signs: yes DS: Data Data Completed and Pending Labs on day of discharge: Labs from last 24 hours 09/12/22 09/11/22 08:13 06:08 Sodium 140 Potassium 3.8 Chloride 107 Carbon Dioxide 29 BUN 13 Creatinine 0.8 Estimated Creat Clear 49.70 Estimated GFR 80 Glucose 91 Calcium 9.7 Total Bilirubin 0.8 AST 31 ALT 32 Alkaline Phosphatase 68 Total Protein 6.7 Albumin 3.6 Digoxin 1.1 Discharge Plan Discharge Disposition: Home, Self-Care Date of Admission: 09/10/22 19:53 Attending Provider on Discharge: Miko Butler Primary Care Provider: Carlitos De Leon Condition: Improved Anticipated Discharge Date/Time: 09/12/22 09:07 Discharge Medications: New furosemide 40 mg Tablet 40 mg PO BID@0800,1400 Qty: 60 0RF potassium chloride 10 mEq Capsule, Extended Release 10 meq PO BIDWM Qty: 60 0RF magnesium oxide 400 mg (241.3 mg magnesium) Tablet 400 mg PO DAILY Qty: 30 0RF Continued isosorbide dinitrate 5 mg tablet 5 mg PO BID amiodarone 200 mg tablet 200 mg PO QDAY Eliquis 5 mg tablet 5 mg PO BID gabapentin 100 mg capsule 100 mg PO .hs atorvastatin 40 mg tablet 40 mg PO QDAY Label Comments: TAKE 1 TABLET BY MOUTH AT BEDTIME fluoxetine 40 mg capsule 40 mg PO QDAY Rx Instructions: takes along with 20mg daily omeprazole 20 mg capsule,delayed release(DR/EC) 20 mg PO QDAY Anoro Ellipta 62.5-25 mcg/actuation blister with device 1 inh inhalation Q24H Label Comments: INHALE 1 PUFF BY MOUTH EVERY DAY Mektovi 15 mg tablet 45 mg PO BID Braftovi 75 mg capsule 450 mg PO QDAY calcium carbonate-vitamin D3 [Calcium 600 with Vitamin D3] 600 mg-12.5 mcg (500 unit) capsule 1 cap PO DAILY magnesium hydroxide [Dulcolax (magnesium hydroxide)] 400 mg/5 mL suspension 30 ml PO QDAY PRN cholecalciferol (vitamin D3) 125 mcg (5,000 unit) capsule 125 mcg PO QDAY albuterol sulfate 90 mcg/actuation HFA aerosol inhaler 2 puff inhalation Q4H PRN acetaminophen 325 mg tablet 975 mg PO .q 8 hrs PRN Discontinued furosemide 40 mg tablet 40 mg PO QDAY Rx Instructions: takes along with 20mg daily digoxin 125 mcg (0.125 mg) tablet 0.125 mg PO QDAY Discharge Orders: Discharge Order (Routine); Ordered 09/12/22 Ordered By: Miko Butler Additional Instructions: Check her weight every day at the same time and record her weight. Contact your doctor if your weight goes up 2 lb in 1 day or 5 lb in 1 week. Contact your doctor if you notice increased swelling in your legs or more trouble breathing. See your doctor next week to recheck your heart failure. He will also need recheck of your medications. The doses of your medications may need to be adjusted next week. Talk to your doctor about your anemia. You should have a blood test next week to check your basic metabolic panel, CBC and magnesium. Activity Level: Activity as Tolerated Discharge Diet: Heart Healthy (2 gm sodium, low fat) Follow Up Appointments: Carlitos De Leon PA-C [Primary Care Provider] - (In the next week) Forms: [employer] Info Instructions Discharge Comments: Basic metabolic panel, CBC, magnesium, next week
[2022-09-12 09:48] VITALS: PULSE 52; RESP 20; TEMP 36.6
[2022-09-12] MEDS: POTASSIUM CHLORIDE 10 MEQ CAPSULE ER PO (10:27)
[2022-09-12] MEDS: ISOSORBIDE DINITRATE 10 MG TABLET 5 MG PO (10:27)
[2022-09-12] MEDS: OMEPRAZOLE 20 MG CAPSULE DR PO (10:28)
[2022-09-12] MEDS: SENNOSIDES/DOCUSATE TABLET 1 TAB PO (10:28)
[2022-09-12] MEDS: MAGNESIUM OXIDE 400 MG TABLET PO (10:28)
[2022-09-12] MEDS: FUROSEMIDE 40 MG TABLET PO (10:28)
[2022-09-12] MEDS: APIXABAN 5 MG TABLET PO (10:28)
[2022-09-12] MEDS: AMIODARONE 200 MG TABLET PO (10:29)
[2022-09-12] MEDS: DOXYCYCLINE HYCLATE 100 MG CAPSULE PO (10:29)
--- NOTE | 2022-09-12 15:53 | ONC.NURNOTE ---
pleasent alert and oriented. vs wnl. except when asleep heart rate drops to 44. pt asymptomatic. Dig. was d/c due to drop in heart rate. explained to daughter and pt. tele 1 degree block. pt up in room with walker and steady. gita.po. denies pain or discomfort. teaching re CHF. romero low salt. weighting. following md instructions of meds. discharged home with daughter via w/c. at 1145
== END 2022-09-12 12:42 | disposition home or self-care (01) | DRG 293 ==
LOC: ED 17:20 → MEDSURG 19:53
PROVIDERS: Family Medicine; Admitting Provider Hospitalist; Emergency Provider Family Medicine; PCP Physician Assistant Medical; Visit Provider Hospitalist
DX: I50.9 Heart failure, unspecified (principal); J44.9 Chronic obstructive pulmonary disease, unspecified; I89.0 Lymphedema, not elsewhere classified; D64.9 Anemia, unspecified; I48.0 Paroxysmal atrial fibrillation
CPT/HCPCS: 36415; 71046; 80048; 80053; 80162; 83540; 83550; 83605; 83735; 83880; 84145; 84484; 85025; 86140; 87502; 87634; 87635; 93005; 93306; 94761; 97116; 97162; 97165; 97530; 99284; 99285; G0378; A9270; J0696; J1940

== ENCOUNTER 2023-02-24 10:38 | Observation (INO) | payer OTHER, SELFPAY ==
[2023-02-24] VITALS (16 sets, daily range): BP systolic 103–130; BP diastolic 68–81; PULSE 65–83; RESP 12–28; TEMP 35.9–36.9; O2SAT 88–95; BMI 28.7
--- NOTE | 2023-02-24 11:07 | CRLHL7_ITS ---
For Patients: As a result of the Century Cures Act, medical imaging exams and procedure reports are released immediately into your electronic medical record. You may view this report before your referring provider. If you have questions, please contact your health care provider. INDICATION: Headache, history of melanoma. TECHNIQUE: CT head without contrast. COMPARISON: MRI, December 07, 2021. FINDINGS: CSF spaces: Within normal limits for age. Brain parenchyma and extra-axial spaces: Focal hyperdensity in the posterior left temporal lobe consistent with history of treated metastasis. Mild chronic white matter ischemic disease. The reaves-white differentiation is normal. No sign of mass, hemorrhage, or midline shift. No extra-axial fluid collection. Skull base and calvarium: The visualized paranasal sinuses and mastoid air cells demonstrate no acute or significant findings. The visualized orbits are grossly unremarkable. No skull fractures. IMPRESSION: No acute intracranial abnormality on this noncontrast study. Please note that all CT scans at this facility use dose modulation, iterative reconstruction, and/or weight-based dosing when appropriate to reduce radiation dose to as low as reasonably achievable. Dictated by Stevie Heard MD @ 02/24/2023 12:04:50 PM (Electronically Signed)
--- NOTE | 2023-02-24 11:07 | CRLHL7_ITS ---
For Patients: As a result of the Century Cures Act, medical imaging exams and procedure reports are released immediately into your electronic medical record. You may view this report before your referring provider. If you have questions, please contact your health care provider. Indication: Shortness of breath Comparison: Two-view chest December 15, 2022 Technique: Single AP view chest Findings: There is hyperinflation and chronic interstitial change. There are increased interstitial markings seen throughout the bilateral hemithoraces consistent with likely developing pulmonary edema. Persistent blunting of the costophrenic angles is noted. There is no pneumothorax. The cardiac silhouette is mildly prominent with a tortuous thoracic aorta. The bony thorax is grossly intact. Impression: Hyperinflation and chronic interstitial change with increased interstitial markings likely representing pulmonary edema. Dictated by Jerman Ni MD @ 02/24/2023 12:29:29 PM (Electronically Signed)
--- NOTE | 2023-02-24 11:12 | ED_ITS ---
HPI - General Adult General Date Seen: 02/24/23 Chief complaint: Shortness of Breath/Dyspnea Stated complaint: Headaches, short of breath Time Seen by Provider: 02/24/23 10:50 Source: patient and family Mode of arrival: ambulatory Limitations: no limitations History of Present Illness HPI narrative: Patient is a 67-year-old woman here with her son for evaluation of worsening shortness of breath over the past week or so as well as acute on chronic headaches. She has a history of metastatic melanoma, she apparently gets imaging of her head every few months and last had a CT scan at the beginning of December. She denies prior history of significant edema or needing treatment. She has tried ibuprofen Tylenol and Excedrin but none seem to help her headache. She describes pain in the left jaw which radiates up to the restorationist and to the back of her head. She denies visual complaints or pain with chewing. She does say it hurts more to lean forward. This pain has been chronic but seems to be giving her more trouble lately. She saw her laboratory mechanic helper a couple of weeks ago, and they elected to make some medication changes. Her son believes they change her spironolactone dosing to twice a week from every day and they discontinued her Farxiga altogether. Review of the cardiology note show a history of STEMI in 2018 status post stenting. An echo in 2022 showed preserved left ventricular systolic function of 55-60%. She had a severely enlarged right ventricle with global right ventricular function moderately reduced. Cardiac output and stroke volume were estimated low. Right atrium was also severely dilated. She had mild aortic stenosis, mild mitral regurgitation, and severe tricuspid regurgitation. She has a history of paroxysmal AFib, she is maintained on Eliquis as well as amiodarone. She had shortness of breath at the time of this visit and the laboratory mechanic helper notes that he felt it was related to volume overload. He mentioned diuresing. [place] that she was euvolemic at that time. There is no further mention of further means of diuresis. They did think the Farxiga could be contributing to her headache so that was discontinued for that reason. It does not sound as if it has made any difference however. Review of oncology records from December show an MRI of the brain which showed an unchanged hypointense 6 mm lesion at the left temporal occipital junction she had no associated enhancement and it was unchanged. Apparently this is favored to be a cavernous malformation verses treated metastatic disease. Her son tells me that her weight has gone up 5-6 lb in the past week or so. She has chronic lower extremity edema, left greater than right, no changes there. She is very short of breath with exertion, she says that she can not even stand at the sink into dishes because she gets so short of breath. While she chronically does not get around great according to her son, he does note that it seems significantly worse over the past week to week and a half. She lives in an apartment in their home, and she typically manages things there pretty well but over the past week she has not been able to get around well enough to manage things. She is on 4 L of oxygen at baseline. She no longer smokes. Related Data Home Medications Medication Instructions Recorded Confirmed acetaminophen 325 mg tablet 975 mg PO Q8H PRN 08/16/22 02/24/23 albuterol sulfate 90 mcg/actuation 2 puff inhalation Q4H PRN 08/16/22 02/24/23 aerosol inhaler amiodarone 200 mg tablet 200 mg PO DAILY 08/16/22 02/24/23 apixaban 5 mg tablet (Eliquis) 5 mg PO BID 08/16/22 02/24/23 atorvastatin 40 mg tablet 40 mg PO HS 08/16/22 02/24/23 binimetinib 15 mg tablet (Mektovi) 45 mg PO BID 08/16/22 12/15/22 calcium carbonate 600 mg-vitamin 1 cap PO DAILY 08/16/22 02/24/23 D3 12.5 mcg (500 unit) capsule (Calcium 600 with Vitamin D3) cholecalciferol (vitamin D3) 125 2,000 unit PO DAILY 08/16/22 02/24/23 mcg (5,000 unit) capsule encorafenib 75 mg capsule 450 mg PO QDAY 08/16/22 12/15/22 ([place]ovi) fluoxetine 40 mg capsule 40 mg PO DAILY 08/16/22 02/24/23 isosorbide dinitrate 5 mg tablet 5 mg PO BID 08/16/22 02/24/23 omeprazole 20 mg capsule,delayed 20 mg PO DAILY 08/16/22 02/24/23 release umeclidinium 62.5 mcg-vilanterol 1 inh inhalation Q24H 08/16/22 02/24/23 25 mcg/actuation powdr for inhalation (Anoro Ellipta) lorazepam 1 mg tablet 1 mg PO TID PRN 12/15/22 02/24/23 spironolactone 25 mg tablet 25 mg PO .COMPLEX 12/15/22 02/24/23 fluoxetine 20 mg capsule 20 mg PO DAILY 02/24/23 02/24/23 furosemide 40 mg tablet 40 mg PO .COMPLEX 02/24/23 02/24/23 gabapentin 100 mg capsule 100 mg PO HS 02/24/23 02/24/23 potassium chloride 10 mEq 10 meq PO .COMPLEX 02/24/23 02/24/23 capsule,extended release sumatriptan succinate 50 mg tablet 50 mg PO Q2H PRN 02/24/23 02/24/23 Previous Rx's Medication Instructions Recorded magnesium oxide 400 mg (241.3 mg 400 mg PO DAILY #30 tabs 09/12/22 magnesium) tablet Allergies Allergy/AdvReac Type Severity Reaction Status Date / Time codeine Allergy Severe blisters Verified 02/24/23 10:52 alendronate sodium Allergy Intermediate Blisters/ra Verified 02/24/23 10:53 [From Fosamax] sh adhesive AdvReac Intermediate Rash Verified 02/24/23 10:53 Review of Systems Status of ROS: Reports: 10 or more systems reviewed and unremarkable except as noted in History and below [facility] Medical History (Updated 02/24/23 @ 14:45 by Miko Butler MD) Paroxysmal atrial fibrillation ?I48.0 - Paroxysmal atrial fibrillation (ICD-10) Atrial fibrillation ?I48.91 - Unspecified atrial fibrillation (ICD-10) Chronic anemia ?D64.9 - Anemia, unspecified (ICD-10) Lymphedema of left lower extremity ?I89.0 - Lymphedema, not elsewhere classified (ICD-10) History of brain cancer ?Z85.841 - Personal history of malignant neoplasm of brain (ICD-10) History of melanoma ?Z85.820 - Personal history of malignant melanoma of skin (ICD-10) History of breast cancer ?Z85.3 - Personal history of malignant neoplasm of breast (ICD-10) COPD (chronic obstructive pulmonary disease) ?J44.9 - Chronic obstructive pulmonary disease, unspecified (ICD-10) Surgical History (Updated 07/06/23 @ 14:35 by Miko Butler MD) History of mandibular surgery ?Z98.890 - Other specified postprocedural states (ICD-10) H/O mastectomy ?Z90.10 - Acquired absence of unspecified breast and nipple (ICD-10) History of hysterectomy ?Z90.710 - Acquired absence of both cervix and uterus (ICD-10) History of coronary artery stent placement ?Z95.5 - Presence of coronary angioplasty implant and graft (ICD-10) Previous back surgery ?Z98.890 - Other specified postprocedural states (ICD-10) Family History (Updated 02/24/23 @ 14:38 by Miko Butler MD) Brother Alcohol dependence COPD (chronic obstructive pulmonary disease) Coronary artery disease High blood pressure Sister Asthma COPD (chronic obstructive pulmonary disease) Coronary artery disease High blood pressure Mother Depression High blood pressure Father High blood pressure Stroke Social History Highest level of school completed/degree received: high school graduate Smoking Status: Former smoker What tobacco products do you use: cigarettes Smoking packs per day: 1 Smoking cigarettes per day: 20.0 Years smoked: 50 Smoking pack-years: 50.00 Smoking quit date/years: <= 15 years ago Do you use any of these nicotine containing products: None Second hand tobacco smoke exposure: No How often do you have a drink containing alcohol: never How often do you have six or more drinks on one occasion: Never AUDIT-C Alcohol total score: 0 Non-prescribed substance use: denies use Caffeine: Yes (Pepsi) service: No Exam Narrative: Exam Narrative: Vital signs as noted above. In general, an alert, nontoxic elderly will be woman. She is on her baseline 4 L of oxygen, breathing comfortably. Head: Normocephalic, atraumatic. Eyes: Pupils are equal reactive. Extraocular movements are full. Conjunctivae are normal. ENT: Mucous membranes are moist. She does not have any teeth in her upper molars. She has tenderness over the temporal region on the left, and tenderness that extends back over the occipital skull. There is no erythema or swelling. Neck: Supple without lymphadenopathy. No stridor. Heart: Regular rate and rhythm. No significant murmur. Lungs: A few crackles are noted at the right base. Otherwise lungs are clear, no wheezing, no significant work of breathing. Abdomen: Soft and nontender. No organomegaly. Extremities: Well perfused. She has edema in both legs, left greater than right. Pulses are intact. She has compression stockings in place. Neurologic: Patient is alert and oriented to person and place. Speech is fluent. Face is symmetric. Moves all extremities equally. Affect: Normal. Skin: Warm and dry. Well perfused. Const: Vital Signs, click to edit/add: Vital Signs - 24 hr 02/24/23 10:51 02/24/23 11:08 02/24/23 11:45 Temperature 96.7 F L Pulse Rate Pulse Rate [Pulse Oximeter] 78 82 Respiratory Rate 28 H Blood Pressure Blood Pressure [Ri ght Upper Arm] 113/71 Pulse Oximetry 88 89 92 Oxygen Delivery Me thod Nasal Cannula Nasal Cannula Nasal Cannula Oxygen Flow Rate 4 4 02/24/23 12:00 02/24/23 12:30 02/24/23 13:00 Temperature Pulse Rate Pulse Rate [Pulse Oximeter] 73 78 83 Respiratory Rate 15 15 28 H Blood Pressure Blood Pressure [Ri ght Upper Arm] 113/70 128/78 130/79 Pulse Oximetry 94 93 94 Oxygen Delivery Me thod Nasal Cannula Nasal Cannula Nasal Cannula Oxygen Flow Rate 4 4 4 02/24/23 13:02 02/24/23 13:03 02/24/23 13:30 Temperature Pulse Rate 78 76 75 Pulse Rate [Pulse Oximeter] Respiratory Rate Blood Pressure 130/79 Blood Pressure [Ri ght Upper Arm] Pulse Oximetry 95 95 93 Oxygen Delivery Me thod Oxygen Flow Rate 02/24/23 13:30 02/24/23 13:31 Temperature Pulse Rate 75 Pulse Rate [Pulse Oximeter] 75 Respiratory Rate 12 Blood Pressure 103/69 Blood Pressure [Ri ght Upper Arm] 103/69 Pulse Oximetry 93 93 Oxygen Delivery Me thod Nasal Cannula Oxygen Flow Rate 4 Course Course Hospital Course: Patient is here for chronic headaches which are more problematic. It does not appear that a clear etiology for these has been previously established. Diagnostic considerations include metastatic disease, intracranial edema, temporal arteritis, tension headaches, TMJ, neuropathy. In terms of her shortness of breath, she is satting well on her usual 4 L of oxygen, but describing significant dyspnea on exertion. Labs are pending. Considerations are for pneumonia, pulmonary edema/CHF, PE, anemia, COPD. Workup here is most suggestive of congestive heart failure with a BNP of over 9000. Troponin is negative. EKG by my review showed a normal sinus rhythm, ventricular rate of 73 beats per minute. Right bundle-branch block. No acute ST segment changes otherwise, T-waves are unremarkable. Chest x-ray shows mild in the lower stool edema. O2 sats were in the upper 80s to low 90s while at rest but we did have her up and walking and she drops into the 83% range on 4 L of oxygen. Other labs are notable for a normal white blood cell count, hem oglobin of 10 which is at her baseline. Sed rate is 18 and CRP is 1.3 I think ruling out the possibility of temporal arteritis. D-dimer was negative at 0.4. Venous gas shows a pCO2 41, normal pH. Metabolic panel is unremarkable. CRP minimally elevated at 1.3. TSH is normal at 3.4. Urinalysis is negative, 0-2 red cells, 0-2 white cells. COVID is negative. Given that she is significantly off her baseline and significantly hypoxic even on her 4 L of oxygen, I think she would benefit from hospitalization for diuresis. In terms of the headache, I did do a CT scan of the head which by my review did not show any evidence of hemorrhage or edema. Read as negative by Radiology. Etiology of her headache is unclear at this time but is chronic in nature. Vital Signs Vital signs: Initial Vital Signs Temperature 96.7 F L 02/24/23 10:51 Temperature Source Temporal Artery Scan 02/24/23 10:51 Pulse Rate 78 02/24/23 10:51 Respiratory Rate 28 H 02/24/23 10:51 Blood Pressure 113/71 02/24/23 10:51 Blood Pressure Mean 85 02/24/23 10:51 Blood Pressure Position Sitting 02/24/23 10:51 Pulse Oximetry 88 02/24/23 10:51 Oxygen Delivery Method Nasal Cannula 02/24/23 10:51 Vital Signs Temperature 96.7 F L 02/24/23 10:51 Pulse Rate 78 02/24/23 10:51 Respiratory Rate 28 H 02/24/23 10:51 Blood Pressure 113/71 02/24/23 10:51 Pulse Oximetry 88 02/24/23 10:51 Oxygen Delivery Method Nasal Cannula 02/24/23 10:51 Temperature 96.7 F L 02/24/23 10:51 Pulse Rate 75 02/24/23 13:31 Respiratory Rate 12 02/24/23 13:30 Blood Pressure 103/69 02/24/23 13:31 Pulse Oximetry 93 02/24/23 13:31 Oxygen Delivery Method Nasal Cannula 02/24/23 13:30 Oxygen Flow Rate 4 02/24/23 13:30 Medical Decision Making Lab Data Labs: Lab Results 02/24/23 02/24/23 02/24/23 Range/Units 11:19 12:20 13:18 WBC 5.15 (4.50-11.00) K/uL RBC 3.45 L (4.00-5.20) m/uL Hgb 10.1 L (12.0-16.0) gm/dL Hct 33.4 (33.0-51.0) % MCV 97 (80-100) fL MCH 29 (26-34) pg MCHC 30 L (32-36) gm/dL RDW Coeff of [place] 17.1 H (11.5-15.5) % Plt Count 210 (140-440) K/uL Neut % (Auto) 75.1 H (42.0-72.0) % Lymph % (Auto) 10.7 L (20-44) % [place] % (Auto) 13.0 H (0.0-11.0) % Eos % (Auto) 0.6 (0.0-7.0) % Baso % (Auto) 0.4 (0.0-3.0) % Neut # (Auto) 3.90 (1.7-7.0) K/uL Lymph # (Auto) 0.60 L (0.90-2.90) K/uL [place] # (Auto) 0.70 (0.00-0.90) K/UL Eos # (Auto) 0.03 (0.00-0.50) K/uL Baso # (Auto) 0.02 (0.00-0.30) K/uL ESR 18 (2-20) mm/hr D-Dimer Quant (PE/DVT) 0.40 (0.00-0.50) ug/ml VBG pH 7.381 (7.32-7.43) VBG pCO2 41 (40-50) mmHG VBG pO2 34.1 (25-47) mmHG VBG HCO3 24 (21-28) mmol/L Sodium 138 (135-149) mmol/L Potassium 3.7 (3.6-5.1) mmol/L Chloride 106 (96-114) mmol/L Carbon Dioxide 23 (20-32) mmol/L BUN 16 (7-30) mg/dL Creatinine 0.9 (0.5-1.5) mg/dL Estimated GFR 69 ml/min Glucose 95 (60-115) mg/dL Calcium 9.8 (8.4-10.6) mg/dL Magnesium 1.6 (1.5-2.6) mg/dL C-Reactive Protein 1.3 H (0.5-1.0) mg/dL NT-Pro-B Natriuret Pep 9630 pg/mL TSH 3.430 (0.270-4.200) uIU/mL Urine Color Yellow (Yellow) Urine Appearance Clear (Clear) Urine pH 5.0 (5.0-8.5) Ur Specific [place] <= 1.005 (1.000-1.030) Urine Protein Negative (Negative) Urine Glucose (UA) Negative (Negative) Urine Ketones Negative (Negative) Urine Blood Negative (Negative) Urine Nitrite Negative (Negative) Urine Bilirubin Negative (Negative) Urine Urobilinogen 0.2 (0.2-1.0) Ur Leukocyte Esterase Negative (Negative) Urine RBC 0-2 (0-2) Urine WBC 0-2 (0-5) Ur Squamous Epith Cells None (None-Few) Urine Bacteria None (None) SARS-CoV-2 (PCR) Negative SARS-CoV-2 (Negative) Influenza Type A (PCR) Negative PCR FLU A (Negative) Influenza Type B (PCR) Negative PCR FLU B (Negative) RSV (PCR) Negative PCR RSV (Negative) Lab Acknowledgement Test Added POC Troponin I 0.01 (0.01-0.04) ng/ml Discharge Plan Discharge Clinical Impression: Shortness of breath, CHF (congestive heart failure), Chronic headache Patient Disposition: Admitted As Observation Condition: Stable
[2023-02-24 11:33] LABS: HCO3 VBG 24 mmol/L (21-28); PCO2 VBG 41 mmHG (40-50); PO2 VBG 34.1 mmHG (25-47); pH VBG 7.381 (7.32-7.43)
[2023-02-24 11:37] LABS: Basophils Absolute Auto 0.02 K/uL (0.00-0.30); Basophils Percent Auto 0.4 % (0.0-3.0); Eosinophils Absolute Auto 0.03 K/uL (0.00-0.50); Eosinophils Percent Auto 0.6 % (0.0-7.0); Hematocrit 33.4 % (33.0-51.0); Hemoglobin* 10.1 gm/dL (12.0-16.0); Immature Granulocytes Abs Auto 0.01 K/uL (0.00-0.30); Immature Granulocytes Pct Auto 0.2 %; Lymphocytes Percent Auto 10.7 % (20-44); Mean Corpuscular HGB Conc 30 gm/dL (32-36); Mean Corpuscular Hemoglobin 29 pg (26-34); Mean Corpuscular Volume 97 fL (80-100); Neutrophils Percent Auto 75.1 % (42.0-72.0); Platelet Count* 210 K/uL (140-440); RDW Coefficient of Variation % 17.1 % (11.5-15.5); Red Blood Count 3.45 m/uL (4.00-5.20); White Blood Count* 5.15 K/uL (4.50-11.00)
[2023-02-24 11:40] LABS: Slide Review Reflex No
[2023-02-24 11:43] LABS: Troponin, Point-of-Care* 0.01 ng/ml (0.01-0.04)
--- NOTE | 2023-02-24 11:50 | ED.NURSE ---
Medication list reconciled with pt's son and [id number] who provides medication management. List updated in pt chart.
[2023-02-24 11:58] LABS: Chloride* 106 mmol/L (96-114); Potassium* 3.7 mmol/L (3.6-5.1); Sodium* 138 mmol/L (135-149)
[2023-02-24 12:02] LABS: Blood Urea Nitrogen* 16 mg/dL (7-30); Calcium* 9.8 mg/dL (8.4-10.6); Carbon Dioxide* 23 mmol/L (20-32); Glucose* 95 mg/dL (60-115)
[2023-02-24 12:04] LABS: C Reactive Protein* 1.3 mg/dL (0.5-1.0)
[2023-02-24 12:12] LABS: PCR FLU A Negative PCR FLU A (Negative); PCR FLU B Negative PCR FLU B (Negative); PCR RSV Negative PCR RSV (Negative)
[2023-02-24 12:15] LABS: Erythrocyte SedimentationRate* 18 mm/hr (2-20)
[2023-02-24 12:20] LABS: NT Pro B Type NatriureticPept* 9630 pg/mL
[2023-02-24 12:26] LABS: Creatinine* 0.9 mg/dL (0.5-1.5); Estimated Glomerular Filt Rate 69 ml/min
[2023-02-24 12:43] LABS: Appearance Urine Clear (Clear); Bilirubin Urine Negative (Negative); Blood Urine Negative (Negative); Color Urine Yellow (Yellow); Glucose Urine Negative (Negative); Ketones Urine Negative (Negative); Leukocyte Esterase Urine Negative (Negative); Nitrite Urine Negative (Negative); Protein Urine Negative (Negative); Specific Gravity Urine <= 1.005 (1.000-1.030); Urobilinogen Urine 0.2 (0.2-1.0)
[2023-02-24 12:53] LABS: SARS PCR* Negative SARS-CoV-2 (Negative)
[2023-02-24 12:59] LABS: RBC Urine 0-2 (0-2); WBC Urine 0-2 (0-5)
--- NOTE | 2023-02-24 12:59 | ED.NURSE ---
pt ambulated around the unit with staff, stayed around 85% on average, occasionally dropping to 82%. Pt became short of breath towards the end and reported her headache came back while walking. Remained on 4L of oxygen while walking.
--- NOTE | 2023-02-24 13:25 | ED.NURSE ---
Call placed to [id number] Pamela, per pt request. Pamela updated on plan for pt to be admitted to hospital to manage fluid overload. Pamela verbalized understanding of plan and will notify son, Doug.
[2023-02-24 13:42] LABS: Magnesium* 1.6 mg/dL (1.5-2.6)
[2023-02-24] MEDS: POTASSIUM BICARB 25 MEQ EFFERVESCENT TAB PO (13:51)
[2023-02-24] MEDS: FUROSEMIDE 10 MG/ML inj 40 MG IVP (13:51)
--- NOTE | 2023-02-24 14:14 | ED.NURSE ---
Pt's personal belonging brought with to room 277 on med/surg. Belongings included clothing, shoes, and cell phone. Pt transferred in stable condition via WC using 4L via nasal cannula.
--- NOTE | 2023-02-24 14:28 | PM.IMHP1 ---
Hospitalist- H&P: RJ History of Present Illness Date Seen: 02/24/23 Chief complaint: Headaches, short of breath Narrative: Shayy Cheng is a 67 year old female here with her son for evaluation of worsening shortness of breath over the past week or so as well as acute on chronic headaches. She has a history of metastatic melanoma, she apparently gets imaging of her head every few months and last had a CT scan at the beginning of December. She denies prior history of significant edema or needing treatment. She has tried ibuprofen Tylenol and Excedrin but none seem to help her headache. She describes pain in the left jaw which radiates up to the adventism and to the back of her head. She denies visual complaints or pain with chewing. She does say it hurts more to lean forward. This pain has been chronic but seems to be giving her more trouble lately. She saw her director validation a couple of weeks ago, and they elected to make some medication changes. Her son believes they change her spironolactone dosing to twice a week from every day and they discontinued her Farxiga altogether. Review of the cardiology note show a history of STEMI in 2018 status post stenting. An echo in 2022 showed preserved left ventricular systolic function of 55-60%. She had a severely enlarged right ventricle with global right ventricular function moderately reduced. Cardiac output and stroke volume were estimated low. Right atrium was also severely dilated. She had mild aortic stenosis, mild mitral regurgitation, and severe tricuspid regurgitation. She has a history of paroxysmal AFib, she is maintained on Eliquis as well as amiodarone. She had shortness of breath at the time of this visit and the director validation notes that he felt it was related to volume overload. He mentioned diuresing. [place] that she was euvolemic at that time. There is no further mention of further means of diuresis. They did think the Farxiga could be contributing to her headache so that was discontinued for that reason. It does not sound as if it has made any difference however. Review of oncology records from December show an MRI of the brain which showed an unchanged hypointense 6 mm lesion at the left temporal occipital junction she had no associated enhancement and it was unchanged. Apparently this is favored to be a cavernous malformation verses treated metastatic disease. Her son tells me that her weight has gone up 5-6 lb in the past week or so. She has chronic lower extremity edema, left greater than right, no changes there. She is very short of breath with exertion, she says that she can not even stand at the sink into dishes because she gets so short of breath. While she chronically does not get around great according to her son, he does note that it seems significantly worse over the past week to week and a half. She lives in an apartment in their home, and she typically manages things there pretty well but over the past week she has not been able to get around well enough to manage things. She is on 4 L of oxygen at baseline. She no longer smokes. Review of Systems Narrative: Other than the issues outlined above patient reports that she generally been doing well. Specifically no fever, cough, chest pain. She reports a diminished appetite but no nausea or vomiting. Bowels are working normally no urinary problems she has chronic left lower extremity edema due to lymphedema. She feels cold all the time. She has chronic headaches which are primarily in her forehead but also in her occiput put. When the headaches become more severe she has them by temporarily. No visual disturbance blurry vision. Headaches have gotten worse since her medications were discontinued by her director validation a couple weeks ago she stopped her melanoma treatment with Braftovi and Mektovi yesterday. [facility] Medical History (Updated 02/24/23 @ 14:45 by Miko Butler MD) Paroxysmal atrial fibrillation ?I48.0 - Paroxysmal atrial fibrillation (ICD-10) Atrial fibrillation ?I48.91 - Unspecified atrial fibrillation (ICD-10) Chronic anemia ?D64.9 - Anemia, unspecified (ICD-10) Lymphedema of left lower extremity ?I89.0 - Lymphedema, not elsewhere classified (ICD-10) History of brain cancer ?Z85.841 - Personal history of malignant neoplasm of brain (ICD-10) History of melanoma ?Z85.820 - Personal history of malignant melanoma of skin (ICD-10) History of breast cancer ?Z85.3 - Personal history of malignant neoplasm of breast (ICD-10) COPD (chronic obstructive pulmonary disease) ?J44.9 - Chronic obstructive pulmonary disease, unspecified (ICD-10) Surgical History (Updated 02/24/23 @ 14:35 by Miko Butler MD) History of mandibular surgery ?Z98.890 - Other specified postprocedural states (ICD-10) H/O mastectomy ?Z90.10 - Acquired absence of unspecified breast and nipple (ICD-10) History of hysterectomy ?Z90.710 - Acquired absence of both cervix and uterus (ICD-10) History of coronary artery stent placement ?Z95.5 - Presence of coronary angioplasty implant and graft (ICD-10) Previous back surgery ?Z98.890 - Other specified postprocedural states (ICD-10) Family History (Updated 02/24/23 @ 14:38 by Miko Butler MD) Brother Alcohol dependence COPD (chronic obstructive pulmonary disease) Coronary artery disease High blood pressure Sister Asthma COPD (chronic obstructive pulmonary disease) Coronary artery disease High blood pressure Mother Depression High blood pressure Father High blood pressure Stroke Social History Highest level of school completed/degree received: high school graduate Smoking Status: Former smoker What tobacco products do you use: cigarettes Smoking packs per day: 1 Smoking cigarettes per day: 20.0 Years smoked: 50 Smoking pack-years: 50.00 Smoking quit date/years: <= 15 years ago Do you use any of these nicotine containing products: None Second hand tobacco smoke exposure: No How often do you have a drink containing alcohol: never How often do you have six or more drinks on one occasion: Never AUDIT-C Alcohol total score: 0 Non-prescribed substance use: denies use Caffeine: Yes (Pepsi) service: No Meds Home Medications and Allergies Home Medications Medication Instructions Recorded Confirmed Type acetaminophen 325 mg tablet 975 mg PO Q8H PRN 08/16/22 02/24/23 History albuterol sulfate 90 mcg/actuation 2 puff inhalation Q4H PRN 08/16/22 02/24/23 History aerosol inhaler amiodarone 200 mg tablet 200 mg PO DAILY 08/16/22 02/24/23 History apixaban 5 mg tablet (Eliquis) 5 mg PO BID 08/16/22 02/24/23 History atorvastatin 40 mg tablet 40 mg PO HS 08/16/22 02/24/23 History binimetinib 15 mg tablet (Mektovi) 45 mg PO BID 08/16/22 12/15/22 History calcium carbonate 600 mg-vitamin 1 cap PO DAILY 08/16/22 02/24/23 History D3 12.5 mcg (500 unit) capsule (Calcium 600 with Vitamin D3) cholecalciferol (vitamin D3) 125 2,000 unit PO DAILY 08/16/22 02/24/23 History mcg (5,000 unit) capsule encorafenib 75 mg capsule 450 mg PO QDAY 08/16/22 12/15/22 History (Braftovi) fluoxetine 40 mg capsule 40 mg PO DAILY 08/16/22 02/24/23 History isosorbide dinitrate 5 mg tablet 5 mg PO BID 08/16/22 02/24/23 History omeprazole 20 mg capsule,delayed 20 mg PO DAILY 08/16/22 02/24/23 History release umeclidinium 62.5 mcg-vilanterol 1 inh inhalation Q24H 08/16/22 02/24/23 History 25 mcg/actuation powdr for inhalation (Anoro Ellipta) lorazepam 1 mg tablet 1 mg PO TID PRN 12/15/22 02/24/23 History spironolactone 25 mg tablet 25 mg PO .COMPLEX 12/15/22 02/24/23 History fluoxetine 20 mg capsule 20 mg PO DAILY 02/24/23 02/24/23 History furosemide 40 mg tablet 40 mg PO .COMPLEX 02/24/23 02/24/23 History gabapentin 100 mg capsule 100 mg PO HS 02/24/23 02/24/23 History potassium chloride 10 mEq 10 meq PO .COMPLEX 02/24/23 02/24/23 History capsule,extended release sumatriptan succinate 50 mg tablet 50 mg PO Q2H PRN 02/24/23 02/24/23 History Allergies Allergy/AdvReac Type Severity Reaction Status Date / Time codeine Allergy Severe blisters Verified 02/24/23 10:52 alendronate sodium Allergy Intermediate Blisters/ra Verified 02/24/23 10:53 [From Fosamax] sh adhesive AdvReac Intermediate Rash Verified 02/24/23 10:53 Exam Narrative: Exam Narrative: She is alert and appears in no distress. She gives her own history. Head is without trauma. Palpation of her head shows tenderness over her scalp most prominently in the temporal areas to a lesser extent over the top an occipital scalp. Eyes are normal. Pupils are equal round reactive to light. Extraocular moves are full. Oropharynx with small airway. Dry mucous membranes. No facial asymmetry. Neck is supple without mass or adenopathy. Respirations are diminished with poor breath sounds in all lung taylor. She has a rare wheeze. Cardiovascular: S1, S2, regular rate and rhythm. Abdomen is soft with mild diffuse tenderness. No mass. She indicates no pain or tenderness except when I palpate. External genitalia normal. Extremities with 1 to 2+ edema in the left and trace edema on the right which is unchanged from baseline according to the patient. She moves all 4 extremities well. No rash. Const: Vital Signs, click to edit/add: Vital Signs - 24 hr 02/24/23 10:51 02/24/23 11:08 02/24/23 11:45 Temperature 96.7 F L Pulse Rate Pulse Rate [Pulse Oximeter] 78 82 Respiratory Rate 28 H Blood Pressure Blood Pressure [Ri ght Upper Arm] 113/71 Pulse Oximetry 88 89 92 Oxygen Delivery Me thod Nasal Cannula Nasal Cannula Nasal Cannula Oxygen Flow Rate 4 4 02/24/23 12:00 02/24/23 12:30 02/24/23 13:00 Temperature Pulse Rate Pulse Rate [Pulse Oximeter] 73 78 83 Respiratory Rate 15 15 28 H Blood Pressure Blood Pressure [Ri ght Upper Arm] 113/70 128/78 130/79 Pulse Oximetry 94 93 94 Oxygen Delivery Me thod Nasal Cannula Nasal Cannula Nasal Cannula Oxygen Flow Rate 4 4 4 02/24/23 13:02 02/24/23 13:03 02/24/23 13:30 Temperature Pulse Rate 78 76 75 Pulse Rate [Pulse Oximeter] Respiratory Rate Blood Pressure 130/79 Blood Pressure [Ri ght Upper Arm] Pulse Oximetry 95 95 93 Oxygen Delivery Me thod Oxygen Flow Rate 02/24/23 13:30 02/24/23 13:31 Temperature Pulse Rate 75 Pulse Rate [Pulse Oximeter] 75 Respiratory Rate 12 Blood Pressure 103/69 Blood Pressure [Ri ght Upper Arm] 103/69 Pulse Oximetry 93 93 Oxygen Delivery Me thod Nasal Cannula Oxygen Flow Rate 4 Documenting provider has reviewed patient's vital signs: yes Hospitalist - H&P: Result Labs Labs: Short CBC 02/24/23 Range/Units 11:19 WBC 5.15 (4.50-11.00) K/uL Hgb 10.1 L (12.0-16.0) gm/dL Hct 33.4 (33.0-51.0) % Plt Count 210 (140-440) K/uL BMP 02/24/23 11:19 Sodium 138 Potassium 3.7 Chloride 106 Carbon Dioxide 23 BUN 16 Creatinine 0.9 Glucose 95 Calcium 9.8 Urine 02/24/23 Range/Units 12:20 Urine Color Yellow (Yellow) Urine Appearance Clear (Clear) Urine pH 5.0 (5.0-8.5) Ur Specific Coleman <= 1.005 (1.000-1.030) Urine Protein Negative (Negative) Urine Glucose (UA) Negative (Negative) Imaging CT scan - head: Radiologist's impression: FINDINGS: CSF spaces: Within normal limits for age. Brain parenchyma and extra-axial spaces: Focal hyperdensity in the posterior left temporal lobe consistent with history of treated metastasis. Mild chronic white matter ischemic disease. The reaves-white differentiation is normal. No sign of mass, hemorrhage, or midline shift. No extra-axial fluid collection. Skull base and calvarium: The visualized paranasal sinuses and mastoid air cells demonstrate no acute or significant findings. The visualized orbits are grossly unremarkable. No skull fractures. IMPRESSION: No acute intracranial abnormality on this noncontrast jolanta Assessment and Plan Assessment and plan (1) CHF (congestive heart failure): Problem comment: Exacerbation of heart failure causing worsening dyspnea. Likely due to discontinuing her Farxiga and cutting back on her spironolactone. I am going to increase her furosemide to 20 mg daily and add for spironolactone 12.5 mg daily. Status: Acute (2) Chronic headache: Problem comment: Acute on chronic headache. Symptoms suggest more tension headache though episodic worsening may be due to other form of headache including migraine. I recommended with her heart failure she not take ibuprofen. We use acetaminophen when the headache is mild and will try low-dose oxycodone or sumatriptan for more severe headache Status: Acute (3) Shortness of breath: Problem comment: Chronically dyspneic and hypoxic due to COPD but now worse likely due to heart failure Status: Acute (4) COPD (chronic obstructive pulmonary disease): Problem comment: Chronic oxygen dependence, 4 L per nasal cannula Status: Acute (5) Lymphedema of left lower extremity: Problem comment: Improved with diuresis. Continue long-term compression stockings Status: Acute (6) Chronic anemia: Problem comment: Uncertain etiology. Currently has iron deficiency but elevated MCV. Likely multifactorial. Outpatient evaluation. Status: Acute (7) Paroxysmal atrial fibrillation: Problem comment: Currently in sinus rhythm. Heart rate relatively slow. Stop digoxin. If necessary give beta-frankie for rate control. Continue anticoagulation. Status: Acute (8) Cough: Problem comment: Presumably her mild cough is due to both COPD and heart failure. Status: Acute Plan Patient is admitted to the hospital for diuresis and attempts at managing headache. She has apparently been to [facility] [address] and other places for headache management but nothing recently. I agree with discontinuing her melanoma drugs at least 1 of them is implicated in causing headaches. I am not convinced that heard heart failure medicines were significant cause of her symptoms at this time. If anything her worsening heart failure may be causing headache. She is encouraged to get her CPAP to the hospital so she can use it at night where she blows in oxygen at 4 L per nasal cannula. Total time spent today is 75 minutes, 50 minutes in coordination of care discussing with patient her daughter and other providers ongoing evaluation management of headaches, hypoxia, COPD and heart failure
[2023-02-24] MEDS: POTASSIUM CHLORIDE 10 MEQ CAPSULE ER PO (19:21)
--- NOTE | 2023-02-24 19:45 | PC.NURSE ---
Up to the floor at 1400. Patient is pleasant and cooperative, alert and oriented x4. Pt. uses 4 L NC chronically. SOB with exertion. SBA with walker to commode. Right side extremity restriction. VSS. Uses CPAP at night. Tele, NSR w/first degree HB.
[2023-02-24] MEDS: GABAPENTIN 100 MG CAPSULE PO (20:44)
[2023-02-24] MEDS: SODIUM CHLORIDE 0.9 % (FLUSH) 10 ML SYRINGE 5 ML IVF (20:44)
[2023-02-24] MEDS: ATORVASTATIN CALCIUM 40 MG TABLET PO (20:44)
[2023-02-24] MEDS: APIXABAN 5 MG TABLET PO (20:44)
[2023-02-24] MEDS: ISOSORBIDE DINITRATE 10 MG TABLET 5 MG PO (20:50)
[2023-02-25 02:55] VITALS: BP 129/78; PULSE 68; RESP 18; O2SAT 94
[2023-02-25] MEDS: OMEPRAZOLE 20 MG CAPSULE DR PO (06:25)
--- NOTE | 2023-02-25 06:48 | PC.NURSE ---
End of shift: Pt A&O. Pleasant and cooperative. VSS on 4 L of 02. Uses CPAP at night. SOB w/ exertion. A1 w/ walker and gait belt. Denies pain. Pt has LLE edema. Right side extremity restriction.
[2023-02-25 06:58] LABS: Eosinophils Absolute Auto 0.08 K/uL (0.00-0.50); Eosinophils Percent Auto 1.4 % (0.0-7.0); HCO3 VBG 27 mmol/L (21-28); Hematocrit 32.4 % (33.0-51.0); Immature Granulocytes Abs Auto 0.01 K/uL (0.00-0.30); Immature Granulocytes Pct Auto 0.2 %; Lymphocytes Percent Auto 17.5 % (20-44); Mean Corpuscular HGB Conc 31 gm/dL (32-36); Mean Corpuscular Hemoglobin 30 pg (26-34); Mean Corpuscular Volume 96 fL (80-100); Monocytes Percent Auto 13.4 % (0.0-11.0); Neutrophils Absolute Auto 3.89 K/uL (1.7-7.0); Neutrophils Percent Auto 67.5 % (42.0-72.0); PCO2 VBG 39 mmHG (40-50); PO2 VBG 75.1 mmHG (25-47); Platelet Count* 208 K/uL (140-440); RDW Coefficient of Variation % 17.3 % (11.5-15.5); Red Blood Count 3.39 m/uL (4.00-5.20); White Blood Count* 5.76 K/uL (4.50-11.00); pH VBG 7.439 (7.32-7.43)
[2023-02-25 07:01] LABS: Slide Review Reflex No
[2023-02-25 07:16] LABS: Chloride* 107 mmol/L (96-114); Potassium* 3.8 mmol/L (3.6-5.1); Sodium* 139 mmol/L (135-149)
[2023-02-25 07:19] LABS: Blood Urea Nitrogen* 18 mg/dL (7-30); Carbon Dioxide* 25 mmol/L (20-32); Creatinine* 0.8 mg/dL (0.5-1.5); Estimated Glomerular Filt Rate 80 ml/min; Glucose* 83 mg/dL (60-115)
[2023-02-25 07:20] LABS: Calcium* 9.7 mg/dL (8.4-10.6)
[2023-02-25 07:21] VITALS: PULSE 57
[2023-02-25 07:30] VITALS: BP 123/76; PULSE 69; RESP 18; RESP 20; TEMP 36.1; O2SAT 90
[2023-02-25 08:24] VITALS: PULSE 69; RESP 20
[2023-02-25] MEDS: FLUOXETINE HCL 20 MG CAPSULE 60 MG PO (09:08)
[2023-02-25] MEDS: SPIRONOLACTONE 25 MG TABLET 12.5 MG PO (09:09)
[2023-02-25] MEDS: FUROSEMIDE 20 MG TABLET PO (09:09)
[2023-02-25] MEDS: POTASSIUM CHLORIDE 10 MEQ CAPSULE ER PO (09:09)
[2023-02-25] MEDS: MAGNESIUM OXIDE 400 MG TABLET PO (09:10)
[2023-02-25] MEDS: APIXABAN 5 MG TABLET PO (09:10)
[2023-02-25] MEDS: AMIODARONE 200 MG TABLET PO (09:10)
[2023-02-25] MEDS: ISOSORBIDE DINITRATE 10 MG TABLET 5 MG PO (09:11)
[2023-02-25 10:29] VITALS: BP 103/69; PULSE 57; RESP 20; TEMP 36.1
[2023-02-25 11:14] VITALS: BP 116/77; PULSE 76; RESP 20; TEMP 36.6; O2SAT 91
--- NOTE | 2023-02-25 11:25 | PM.DS1 ---
DS: Providers Provider Date Seen: 02/25/23 Date of admission: 02/24/23 13:49 Primary care physician: Carlitos De Leon PA-C Admitting Clinician: Miko Butler MD Attending Physician on discharge: Miko Butler MD Date of Discharge: 02/25/23 DS: Diagnosis Discharge Diagnosis (1) CHF (congestive heart failure): Status: Acute Problem details: Exacerbation of heart failure causing worsening dyspnea. Likely due to discontinuing her Farxiga and cutting back on her spironolactone. I am going to increase her furosemide to 20 mg daily and add for spironolactone 12.5 mg daily. Prior to admission she was taking furosemide 40 mg twice a week and spironolactone 25 mg twice a week. Today she reports she is back to baseline with exertional dyspnea. (2) COPD (chronic obstructive pulmonary disease): Status: Acute Problem details: Chronic oxygen dependence, 4 L per nasal cannula (3) Lymphedema of left lower extremity: Status: Acute Problem details: Improved with diuresis. Continue long-term compression stockings (4) Chronic headache: Status: Acute Problem details: Acute on chronic headache. Symptoms suggest more tension headache though episodic worsening may be due to other form of headache including migraine. I recommended with her heart failure she not take ibuprofen. We use acetaminophen when the headache is mild and will try low-dose oxycodone or sumatriptan for more severe headache. Today she reports no headache. DS: Summary Hospital Course Hospital Course: 67-year-old female admitted through the emergency department with headache and dyspnea. Patient is had acute on chronic headache problems longstanding. She went to the emergency room for evaluation. She had normal neurologic evaluation and normal head imaging. She also noted that she was short of breath and was found to be hypoxic with any activity. She is on oxygen at 4 L per nasal cannula at home and has required that here. Evaluation showed that she had pulmonary edema consistent with heart failure. This was thought to be secondary to a recent decrease in her diuretic medications due to possible side effects. Diuretics were increased here and with this she reports breathing is back to baseline. Status at Discharge Functional status at discharge: uses cane/walker Overall status at discharge: patient is progressing back to baseline Time Spent with Patient Time attestation: Total time spent providing and/or coordinating discharge services: Time spent: Greater than 30 minutes Exam Narrative: Exam Narrative: She is alert and appears in no distress. Mood and affect are bright. Speech is normal. Respirations are clear to auscultation except for a rare basilar crackle. Diffusely decreased breath sounds. No wheezing. Cardiovascular: S1, S2, regular rate and rhythm. Abdomen is soft without tenderness. Some edema in her left lower extremity. None on her right. Const: Vital Signs, click to edit/add: Vital Signs - 24 hr 02/24/23 11:45 02/24/23 12:00 02/24/23 12:30 Temperature Pulse Rate Pulse Rate [Pulse Oximeter] 82 73 78 Respiratory Rate 15 15 Blood Pressure Blood Pressure [Le ft Arm] Blood Pressure [Ri ght Upper Arm] 113/70 128/78 Pulse Oximetry 92 94 93 Oxygen Delivery Me thod Nasal Cannula Nasal Cannula Nasal Cannula Oxygen Flow Rate 4 4 4 02/24/23 13:00 02/24/23 13:02 02/24/23 13:03 Temperature Pulse Rate 78 76 Pulse Rate [Pulse Oximeter] 83 Respiratory Rate 28 H Blood Pressure 130/79 Blood Pressure [Le ft Arm] Blood Pressure [Ri ght Upper Arm] 130/79 Pulse Oximetry 94 95 95 Oxygen Delivery Me thod Nasal Cannula Oxygen Flow Rate 4 02/24/23 13:30 02/24/23 13:30 02/24/23 13:31 Temperature Pulse Rate 75 75 Pulse Rate [Pulse Oximeter] 75 Respiratory Rate 12 Blood Pressure 103/69 Blood Pressure [Le ft Arm] Blood Pressure [Ri ght Upper Arm] 103/69 Pulse Oximetry 93 93 93 Oxygen Delivery Me thod Nasal Cannula Oxygen Flow Rate 4 02/24/23 14:00 02/24/23 14:00 02/24/23 14:00 Temperature 96.7 F L Pulse Rate 67 Pulse Rate [Pulse Oximeter] Respiratory Rate 12 12 Blood Pressure Blood Pressure [Le ft Arm] Blood Pressure [Ri ght Upper Arm] Pulse Oximetry 91 91 Oxygen Delivery Me thod Nasal Cannula Nasal Cannula Oxygen Flow Rate 4 4 02/24/23 14:00 02/24/23 14:00 02/24/23 19:00 Temperature 96.7 F L Pulse Rate Pulse Rate [Pulse Oximeter] 65 Respiratory Rate 12 12 20 Blood Pressure Blood Pressure [Le ft Arm] 105/73 108/68 Blood Pressure [Ri ght Upper Arm] Pulse Oximetry 91 91 94 Oxygen Delivery Me thod Nasal Cannula Nasal Cannula Nasal Cannula Oxygen Flow Rate 4 4 4 02/24/23 20:49 02/24/23 23:00 02/24/23 23:55 Temperature Pulse Rate 67 Pulse Rate [Pulse Oximeter] 70 Respiratory Rate 20 Blood Pressure Blood Pressure [Le ft Arm] 124/81 Blood Pressure [Ri ght Upper Arm] Pulse Oximetry 94 Oxygen Delivery Me thod Nasal Cannula Oxygen Flow Rate 4 02/24/23 23:56 02/25/23 02:55 02/25/23 07:21 Temperature 98.5 F Pulse Rate 57 L Pulse Rate [Pulse Oximeter] 67 68 Respiratory Rate 20 18 Blood Pressure Blood Pressure [Le ft Arm] 127/79 129/78 Blood Pressure [Ri ght Upper Arm] Pulse Oximetry 94 94 Oxygen Delivery Me thod Nasal Cannula CPAP Oxygen Flow Rate 4 4 02/25/23 07:30 02/25/23 07:30 02/25/23 08:24 Temperature 97.0 F L Pulse Rate Pulse Rate [Pulse Oximeter] 69 69 Respiratory Rate 18 20 20 Blood Pressure Blood Pressure [Le ft Arm] 123/76 Blood Pressure [Ri ght Upper Arm] Pulse Oximetry 90 90 Oxygen Delivery Me thod CPAP Nasal Cannula CPAP Oxygen Flow Rate 4 4 02/25/23 10:29 02/25/23 11:14 Temperature 97.0 F L 97.9 F Pulse Rate 57 L Pulse Rate [Pulse Oximeter] 76 Respiratory Rate 20 20 Blood Pressure 103/69 Blood Pressure [Le ft Arm] 116/77 Blood Pressure [Ri ght Upper Arm] Pulse Oximetry 91 Oxygen Delivery Me thod Nasal Cannula CPAP Oxygen Flow Rate 4 Documenting provider has reviewed patient's vital signs: yes DS: Data Data Completed and Pending Labs on day of discharge: Labs from last 24 hours 02/25/23 02/24/23 02/24/23 06:07 13:18 12:20 WBC 5.76 RBC 3.39 L Hgb 10.0 L Hct 32.4 L MCV 96 MCH 30 MCHC 31 L RDW Coeff of Bruno 17.3 H Plt Count 208 Neut % (Auto) 67.5 Lymph % (Auto) 17.5 L King % (Auto) 13.4 H Eos % (Auto) 1.4 Baso % (Auto) 0.0 Neut # (Auto) 3.89 Lymph # (Auto) 1.00 King # (Auto) 0.80 Eos # (Auto) 0.08 Baso # (Auto) 0.00 Abs Immat Gran (auto) 0.01 Imm/Tot Granulo (auto) 0.2 ESR D-Dimer Quant (PE/DVT) VBG pH 7.439 H VBG pCO2 39 L VBG pO2 75.1 H VBG HCO3 27 Sodium 139 Potassium 3.8 Chloride 107 Carbon Dioxide 25 BUN 18 Creatinine 0.8 Estimated Creat Clear 49.70 Estimated GFR 80 Glucose 83 Calcium 9.7 Magnesium C-Reactive Protein NT-Pro-B Natriuret Pep TSH Urine Color Yellow Urine Appearance Clear Urine pH 5.0 Ur Specific Plain <= 1.005 Urine Protein Negative Urine Glucose (UA) Negative Urine Ketones Negative Urine Blood Negative Urine Nitrite Negative Urine Bilirubin Negative Urine Urobilinogen 0.2 Ur Leukocyte Esterase Negative Urine RBC 0-2 Urine WBC 0-2 Ur Squamous Epith Cells None Urine Bacteria None SARS-CoV-2 (PCR) Influenza Type A (PCR) Influenza Type B (PCR) RSV (PCR) Lab Acknowledgement Test Added POC Troponin I 02/24/23 11:19 WBC 5.15 RBC 3.45 L Hgb 10.1 L Hct 33.4 MCV 97 MCH 29 MCHC 30 L RDW Coeff of Bruno 17.1 H Plt Count 210 Neut % (Auto) 75.1 H Lymph % (Auto) 10.7 L King % (Auto) 13.0 H Eos % (Auto) 0.6 Baso % (Auto) 0.4 Neut # (Auto) 3.90 Lymph # (Auto) 0.60 L King # (Auto) 0.70 Eos # (Auto) 0.03 Baso # (Auto) 0.02 Abs Immat Gran (auto) Imm/Tot Granulo (auto) ESR 18 D-Dimer Quant (PE/DVT) 0.40 VBG pH 7.381 VBG pCO2 41 VBG pO2 34.1 VBG HCO3 24 Sodium 138 Potassium 3.7 Chloride 106 Carbon Dioxide 23 BUN 16 Creatinine 0.9 Estimated Creat Clear Estimated GFR 69 Glucose 95 Calcium 9.8 Magnesium 1.6 C-Reactive Protein 1.3 H NT-Pro-B Natriuret Pep 9630 TSH 3.430 Urine Color Urine Appearance Urine pH Ur Specific Plain Urine Protein Urine Glucose (UA) Urine Ketones Urine Blood Urine Nitrite Urine Bilirubin Urine Urobilinogen Ur Leukocyte Esterase Urine RBC Urine WBC Ur Squamous Epith Cells Urine Bacteria SARS-CoV-2 (PCR) Negative SARS-CoV-2 Influenza Type A (PCR) Negative PCR FLU A Influenza Type B (PCR) Negative PCR FLU B RSV (PCR) Negative PCR RSV Lab Acknowledgement POC Troponin I 0.01 Discharge Plan Discharge Disposition: Home, Self-Care Date of Admission: 02/24/23 13:49 Attending Provider on Discharge: Miko Butler Primary Care Provider: Carlitos De Leon Condition: Stable Anticipated Discharge Date/Time: 02/25/23 10:00 Discharge Medications: New potassium chloride 10 mEq capsule, extended release 10 meq PO DAILY Qty: 30 0RF furosemide 20 mg tablet 20 mg PO DAILY Qty: 30 0RF spironolactone 25 mg tablet 12.5 mg PO DAILY Qty: 30 0RF Continued isosorbide dinitrate 5 mg tablet 5 mg PO BID amiodarone 200 mg tablet 200 mg PO DAILY Eliquis 5 mg tablet 5 mg PO BID atorvastatin 40 mg tablet 40 mg PO HS Patient Comments: TAKE 1 TABLET BY MOUTH AT BEDTIME fluoxetine 40 mg capsule 40 mg PO DAILY Rx Instructions: takes along with 20mg daily omeprazole 20 mg capsule,delayed release(DR/EC) 20 mg PO DAILY Anoro Ellipta 62.5-25 mcg/actuation blister with device 1 inh inhalation Q24H Patient Comments: INHALE 1 PUFF BY MOUTH EVERY DAY calcium carbonate-vitamin D3 [Calcium 600 with Vitamin D3] 600 mg-12.5 mcg (500 unit) capsule 1 cap PO DAILY cholecalciferol (vitamin D3) 125 mcg (5,000 unit) capsule 2,000 unit PO DAILY albuterol sulfate 90 mcg/actuation HFA aerosol inhaler 2 puff inhalation Q4H PRN acetaminophen 325 mg tablet 975 mg PO Q8H PRN lorazepam 1 mg tablet 1 mg PO DAILY PRN Rx Instructions: PRIOR TO MRI OR OTHER ANXIETY-PROVOKING PROCEDURES magnesium oxide 400 mg (241.3 mg magnesium) Tablet 400 mg PO DAILY Qty: 30 0RF sumatriptan succinate 50 mg tablet 50 mg PO Q2H PRN fluoxetine 20 mg capsule 20 mg PO DAILY gabapentin 100 mg capsule 100 mg PO HS Prolia 60 mg/mL syringe 60 mg subcut [id number] multivitamin [Daily Multi-Vitamin] Tablet 1 tab PO DAILY Discontinued Mektovi 15 mg tablet 45 mg PO BID Hold Instructions: HOLDING FOR NOW PER ONCOLOGIST Braftovi 75 mg capsule 450 mg PO QDAY Hold Instructions: HOLDING FOR NOW PER ONCOLOGIST spironolactone 25 mg tablet 25 mg PO .COMPLEX Rx Instructions: 25 mg orally Mondays and Wednesdays; furosemide 40 mg Tablet 40 mg PO .COMPLEX Rx Instructions: 40 mg orally Mondays and ; potassium chloride 10 mEq Capsule, Extended Release 10 meq PO .COMPLEX Rx Instructions: 10 mEq orally Mondays and ; Discharge Orders: Discharge Order (Routine); Ordered 02/25/23 Ordered By: Miko Butler Patient Education: Spironolactone (By mouth), Furosemide (By mouth), Potassium Chloride (By mouth), Heart Failure (DC) Additional Instructions: Check your weight every day. Record your weights and bring them to your appointment. Weight gain can be an early sign of fluid retention and heart failure getting worse Activity Level: Activity as Tolerated Discharge Diet: Heart Healthy (2 gm sodium, low fat) Follow Up Appointments: Carlitos De Leon PA-C [Primary Care Provider] - 03/03/23 11:00 am ([facility] for follow-up. Will have her basic metabolic panel checked at this appointment.) Forms: [employer] Info Instructions
--- NOTE | 2023-02-25 11:46 | PC.NURSE ---
Discharge. Pt is pleasant and cooperative. Alert and oriented x4, no pain. she said she feels better. she is on chronic 4 L of 02. Uses CPAP at night with 02 SOB w/ exertion, it is better today. she said it feels better. She is up with SBA w/ walker and gait belt, and o2 tubbing/ Right side extremity restriction. Tele, NSR w/first degree HB. went over discharge packet with pt and son. went over changes in 3 meds, appointment x1, education and instructions. she went over and signed personal belonging sheet. she got a w/c ride out with all belongings and paperwork
== END 2023-02-25 11:43 | disposition home or self-care (01) ==
LOC: ED 13:03 → MEDSURG 13:49
PROVIDERS: Admitting Provider Family Medicine; Emergency Provider Emergency Medicine; PCP Physician Assistant Medical; Visit Provider Family Medicine
DX: I50.9 Heart failure, unspecified (principal); R51.9 Headache, unspecified; G89.29 Other chronic pain; R06.02 Shortness of breath; J44.9 Chronic obstructive pulmonary disease, unspecified; I89.0 Lymphedema, not elsewhere classified; D64.9 Anemia, unspecified; I48.0 Paroxysmal atrial fibrillation; R05.9 Cough, unspecified
CPT/HCPCS: 36415; 70450; 71045; 80048; 81001; 82803; 83735; 83880; 84443; 84484; 85025; 85379; 85651; 86140; 87631; 87635; 93005; 96374; 99284; 99285; G0378; A9270; J1940